=== PATIENT | female | born 1980 | race Caucasian/White ===

== ENCOUNTER 2017-04-01 02:47 | Emergency (ER) | payer MEDICAID ==
[~2017-04-01] VITALS: Ht 165.1 cm; Wt 48.1 kg
[~2017-04-01 02:47] MED LIST: HYDR-4037 PO; NOR10 PO; PRED20TA PO; PRO40 PO; SEVE800T10 PO
[2017-04-01 02:55] VITALS: BP_SYST 207
--- NOTE | 2017-04-01 03:16 | NUR ---
Patient to ER bed 5 to gown for evaluation. Side rails up. Report given to MAG SMITH.
--- NOTE | 2017-04-01 03:19 | NUR ---
Pt presents to ED with c/o burning R arm pain 10/10 with tingling, R chest portocath. Pt stated she had dialysis on 03/31. A&Ox4, skin intact. Will continue to monitor
--- NOTE | 2017-04-01 03:50 | NUR ---
MD elizalde at bedside examining pt
--- NOTE | 2017-04-01 04:00 | NUR ---
MD elizalde notified regarding BP 190/125, HR 125. stated to give morphine IV and ativan IV
[2017-04-01 04:04] LABS: CALCIUM 8.5 mg/dL (8.4-11.0); CREATININE 5.6 mg/dL (0.55-1.30); POTASSIUM 4.8 mmol/L (3.5-5.1)
[2017-04-01 04:09] LABS: ALBUMIN 3.7 g/dL (3.4-4.8); TOTAL BILIRUBIN 0.6 mg/dL (0.0-1.0); TOTAL PROTEIN, SERUM 8.1 g/dL (6.4-8.3)
[2017-04-01] MEDS ORDERED: MORPHINE 4 MG/ML INJ. SYRINGE IVP ONE (04:15)
[2017-04-01] MEDS ORDERED: LORazepam 2 MG/ML VIAL IVP ONE (04:15)
[2017-04-01] MEDS ORDERED: LORazepam 2 MG/ML VIAL (FOR ER USE) ONE (04:19)
[2017-04-01 04:20] LABS: BASOPHILS % (AUTO) 0.3 % (0.0-2.0); HEMATOCRIT 30.3 % (36-48); HEMOGLOBIN 9.6 g/dL (12.0-16.0); LYMPHOCYTES # (AUTO) 0.5 K/uL (1.0-5.5); LYMPHOCYTES % (AUTO) 15.5 % (20.5-51.5); MEAN CORPUSCULAR HEMOGLOBIN 30 pg (27-31); MEAN CORPUSCULAR HGB CONC 32 % (32-36); MEAN CORPUSCULAR VOLUME 95 fL (79.0-98.0); MONOCYTES # (AUTO) 0.3 K/uL (0.0-1.0); MONOCYTES % (AUTO) 8.3 % (1.7-9.3); NEUTROPHILS # (AUTO) 2.6 K/uL (1.8-7.7); NEUTROPHILS % (AUTO) 75.9 % (40.0-70.0); PLATELET COUNT (AUTO) 206 K/uL (130-430); RED BLOOD CELL COUNT(AUTO) 3.18 MIL/uL (4.2-6.2); WHITE BLOOD COUNT (AUTO) 3.4 K/uL (4.8-10.8)
[2017-04-01 04:31] LABS: PROTHROMBIN TIME 10.5 SECS (9.5-12.5)
--- NOTE | 2017-04-01 05:11 | NUR ---
Pt in bed, pain is tolerable. Will continue to monitor
--- NOTE | 2017-04-01 05:45 | NUR ---
MD elizalde stated that Pt is ok to be discharged with BP 185/112, HR 78.
[2017-04-01 06:15] VITALS: BP_SYST 171
--- NOTE | 2017-04-01 06:15 | NUR ---
Patient given written and verbal discharge instructions and verbalizes understanding. ER MD Olmedo discussed with patient the results and treatment provided. Patient in stable condition. ID arm band removed. IV catheter removed intact and dressing applied, no active bleeding. Rx of tramadol given. Patient educated on pain management and to follow up with PMD. Pain Scale 0/10. Opportunity for questions provided and answered.
== END 2017-04-01 06:15 | disposition home or self-care (01) ==
LOC: SED 02:47
DX: G89.29 Other chronic pain (principal); M79.602 Pain in left arm; I12.0 Hypertensive chronic kidney disease with stage 5 chronic kidney disease or end stage renal disease; N18.6 End stage renal disease; Z99.2 Dependence on renal dialysis; Z88.1 Allergy status to other antibiotic agents; Z88.5 Allergy status to narcotic agent; Z88.6 Allergy status to analgesic agent
CPT/HCPCS: 36415; 71010; 80053; 84484; 84703; 85025; 85610; 85730; 93005; 96374; 96375; 99285; J2060; J2270; J7030

== ENCOUNTER 2017-08-09 02:54 | Inpatient (IN) | payer MEDICAID ==
[2017-08-09] VITALS (7 sets, daily range): BP systolic 111–194
[~2017-08-09] VITALS: Ht 162.6 cm; Wt 54.0 kg
[2017-08-09] MEDS ORDERED: methylPREDNISolone SOD SUCC/PF 62.5 MG/ML VIAL IVP ONE (03:45)
[2017-08-09] MEDS ORDERED: KETOROLAC TROMETHAMINE 30 MG VIAL IVP ONE (03:45)
[2017-08-09] MEDS ORDERED: NS 500 ML IV ONE (03:45)
[2017-08-09] MEDS ORDERED: ONDANSETRON HCL 4 MG/2 ML VIAL IVP ONE (03:45)
[2017-08-09 04:17] LABS: HEMATOCRIT 40.9 % (36-48); HEMOGLOBIN 12.7 g/dL (12.0-16.0); MEAN CORPUSCULAR HEMOGLOBIN 29 pg (27-31); MEAN CORPUSCULAR HGB CONC 31 % (32-36); MEAN CORPUSCULAR VOLUME 92 fL (79.0-98.0); PLATELET COUNT (AUTO) 187 K/uL (130-430); RED BLOOD CELL COUNT(AUTO) 4.45 MIL/uL (4.2-6.2); RED CELL DISTRIBUTION WIDTH 20.3 % (9.0-15.0); WHITE BLOOD COUNT (AUTO) 7.5 K/uL (4.8-10.8)
[2017-08-09 04:18] LABS: BASOPHILS % (AUTO) 0.3 % (0.0-2.0); EOSINOPHILS % (AUTO) 0.1 % (0.0-4.0); LYMPHOCYTES # (AUTO) 0.5 K/uL (1.0-5.5); LYMPHOCYTES % (AUTO) 6.6 % (20.5-51.5); MONOCYTES # (AUTO) 0.2 K/uL (0.0-1.0); NEUTROPHILS # (AUTO) 6.8 K/uL (1.8-7.7)
[2017-08-09 04:27] LABS: CALCIUM 8.8 mg/dL (8.4-11.0)
[2017-08-09 04:31] LABS: ALBUMIN 3.1 g/dL (3.4-4.8); TOTAL BILIRUBIN 0.6 mg/dL (0.0-1.0)
[2017-08-09 04:34] LABS: POTASSIUM 7.8 mmol/L (3.5-5.1)
[2017-08-09 04:35] LABS: CREATININE 7.96 mg/dL (0.55-1.30)
[2017-08-09] MEDS ORDERED: DEXTROSE 50% JECT 50 ML DISP.SYRIN IVP ONE (04:45)
[2017-08-09] MEDS ORDERED: ALBUTEROL SULFATE 0.083% 2.5 MG/3 ML VIAL.NEB INH ONE ×2 (04:45→05:00)
[2017-08-09] MEDS ORDERED: INSULIN REGULAR, HUMAN 10 UNITS/0.1 ML INJ IVP ONE (04:45)
[2017-08-09] MEDS ORDERED: CALCIUM CHLORIDE 1 GM in NS 100 ML IV ONE (04:45)
[2017-08-09] MEDS ORDERED: SODIUM POLYSTYRENE SULFONATE 15 GM/60 ML UDBTL PO ONE (07:15)
[2017-08-09 08:17] LABS: CALCIUM 8.9 mg/dL (8.4-11.0)
[2017-08-09 08:22] LABS: CREATININE 7.7 mg/dL (0.55-1.30)
[2017-08-09] MEDS ORDERED: HEPARIN SODIUM, PORCINE 10,000 UNITS/ 10 ML VIAL MC ONE (10:00)
[2017-08-09] MEDS ORDERED: MORPHINE 4 MG/ML INJ. SYRINGE IVP PRN (10:30)
[2017-08-09] MEDS ORDERED: ACETAMINOPHEN 325 MG TABLET PO PRN (10:30)
[2017-08-09] MEDS ORDERED: MORPHINE 2 MG/ML INJ. SYRINGE IVP PRN (10:30)
[2017-08-09] MEDS ORDERED: cloNIDine HCL 0.1 MG TABLET PO PRN (10:30)
[2017-08-09] MEDS ORDERED: amLODIPine BESYLATE 10 MG TABLET PO ONE (10:45)
[2017-08-09 16:22] LABS: CALCIUM 8.7 mg/dL (8.4-11.0); CREATININE 4.41 mg/dL (0.55-1.30); POTASSIUM 4.5 mmol/L (3.5-5.1)
[2017-08-09] MEDS: SILVER 44.4 ML GEL.ER.ML. TP SCH (18:21)
[2017-08-09] MEDS: hydrALAZINE HCL 10 MG TABLET PO SCH (20:47)
[2017-08-10 03:39] VITALS: BP_SYST 130
[2017-08-10 06:06] LABS: HEPATITIS B SURFACE AG Negative (Negative); HEPATITIS C VIRUS AB <0.1 s/co ratio (0.0-0.9)
[2017-08-10] MEDS: PREDNISONE 20 MG TABLET PO SCH (09:37)
[2017-08-10] MEDS: amLODIPine BESYLATE 10 MG TABLET PO SCH (09:37)
[2017-08-10] MEDS: PANTOPRAZOLE SODIUM 40 MG TAB PO SCH (09:37)
[2017-08-10] MEDS: hydrALAZINE HCL 10 MG TABLET PO SCH ×2 (09:38→20:47)
[2017-08-10] MEDS: SILVER 44.4 ML GEL.ER.ML. TP SCH (09:40)
[2017-08-10 09:41] VITALS: BP_SYST 124
[2017-08-10 12:00] VITALS: BP_SYST 120
[2017-08-10 17:16] VITALS: BP_SYST 137
[2017-08-10 20:00] VITALS: BP_SYST 120
[2017-08-10 23:48] VITALS: BP_SYST 119
[2017-08-11 04:09] VITALS: BP_SYST 121
[2017-08-11 07:46] VITALS: BP_SYST 143
[2017-08-11 08:31] LABS: ALBUMIN 2.8 g/dL (3.4-4.8); BILIRUBIN,DIRECT 0.1 mg/dL (0.0-0.3); TOTAL BILIRUBIN 0.4 mg/dL (0.0-1.0)
[2017-08-11] MEDS: hydrALAZINE HCL 10 MG TABLET PO SCH (09:00)
[2017-08-11] MEDS: SILVER 44.4 ML GEL.ER.ML. TP SCH (09:00)
[2017-08-11] MEDS: amLODIPine BESYLATE 10 MG TABLET PO SCH (09:00)
[2017-08-11] MEDS: PREDNISONE 20 MG TABLET PO SCH (09:58)
[2017-08-11] MEDS: PANTOPRAZOLE SODIUM 40 MG TAB PO SCH (09:58)
[2017-08-11 11:34] VITALS: BP_SYST 135
[2017-08-11 12:17] VITALS: BP_SYST 135
== END 2017-08-11 12:41 | disposition home or self-care (01) | DRG 470 ==
LOC: SED 02:54 → STU 07:19 → SMU 08-10 11:22
PROVIDERS: ADMIT Internal Medicine Hospice and Palliative Medicine; ATTEND Internal Medicine Hospice and Palliative Medicine
PROC: 5A1D00Z (ICD-10-PCS; principal; 2017-08-09)
DX: I12.0 Hypertensive chronic kidney disease with stage 5 chronic kidney disease or end stage renal disease (principal); N18.6 End stage renal disease; M32.9 Systemic lupus erythematosus, unspecified; E87.5 Hyperkalemia; N04.9 Nephrotic syndrome with unspecified morphologic changes; E03.9 Hypothyroidism, unspecified; D63.1 Anemia in chronic kidney disease; R10.9 Unspecified abdominal pain; Z79.899 Other long term (current) drug therapy; Z99.2 Dependence on renal dialysis; Z88.6 Allergy status to analgesic agent; Z88.1 Allergy status to other antibiotic agents
CPT/HCPCS: 36415; 76700-TC; 80048; 80053; 80076; 82977-TC; 83605; 83690-TC; 84703; 85025; 86706; 86803; 87040-TC; 87081; 87340; 90935; 93005; 94640; 96365; 96375; 99285; A6261; J1815; J1885; J1956; J2405; J2930; J7030; J7512

== ENCOUNTER 2017-08-19 02:07 | Emergency (ER) | payer MEDICAID ==
[~2017-08-19] VITALS: Ht 162.6 cm; Wt 45.8 kg
[2017-08-19 02:22] VITALS: BP_SYST 131
[2017-08-19] MEDS ORDERED: ASPIRIN 81 MG TAB.CHEW PO ONE (02:45)
[2017-08-19] MEDS ORDERED: KETOROLAC TROMETHAMINE 60 MG/2 ML VIAL IM ONE (03:15)
[2017-08-19 03:23] LABS: CALCIUM 8.9 mg/dL (8.4-11.0); CREATININE 5.21 mg/dL (0.55-1.30); HEMATOCRIT 39.3 % (36-48); HEMOGLOBIN 12.6 g/dL (12.0-16.0); MEAN CORPUSCULAR HEMOGLOBIN 30 pg (27-31); MEAN CORPUSCULAR HGB CONC 32 % (32-36); MEAN CORPUSCULAR VOLUME 92 fL (79.0-98.0); PLATELET COUNT (AUTO) 193 K/uL (130-430); POTASSIUM 4.4 mmol/L (3.5-5.1); RED BLOOD CELL COUNT(AUTO) 4.26 MIL/uL (4.2-6.2); RED CELL DISTRIBUTION WIDTH 19.5 % (9.0-15.0)
[2017-08-19 03:24] LABS: BASOPHILS % (AUTO) 0.2 % (0.0-2.0); EOSINOPHILS % (AUTO) 0.2 % (0.0-4.0); LYMPHOCYTES # (AUTO) 0.8 K/uL (1.0-5.5); LYMPHOCYTES % (AUTO) 8.8 % (20.5-51.5); MONOCYTES # (AUTO) 0.5 K/uL (0.0-1.0); MONOCYTES % (AUTO) 5.1 % (1.7-9.3); NEUTROPHILS # (AUTO) 7.7 K/uL (1.8-7.7); NEUTROPHILS % (AUTO) 85.7 % (40.0-70.0)
[2017-08-19 03:28] LABS: ALBUMIN 3.3 g/dL (3.4-4.8); TOTAL BILIRUBIN 0.4 mg/dL (0.0-1.0)
[2017-08-19] MEDS ORDERED: MORPHINE 4 MG/ML INJ. SYRINGE IVP ONE (03:30)
[2017-08-19 03:33] LABS: PROTHROMBIN TIME 10.3 SECS (9.5-12.5)
[2017-08-19] MEDS ORDERED: METO25TA6 PO (03:36)
[2017-08-19 03:59] VITALS: BP_SYST 150
[2017-08-20] MEDS ORDERED: PRED10TA PO (18:12)
[2017-08-20] MEDS ORDERED: NOR10 PO (18:12)
== END 2017-08-19 03:59 | disposition home or self-care (01) ==
LOC: SED 02:07
DX: R51 Headache (principal); M79.1 Myalgia; R07.89 Other chest pain; R11.2 Nausea with vomiting, unspecified; I10 Essential (primary) hypertension; L93.0 Discoid lupus erythematosus; Z99.2 Dependence on renal dialysis; Z88.1 Allergy status to other antibiotic agents; Z88.5 Allergy status to narcotic agent
CPT/HCPCS: 36415; 71010; 80053; 83880; 84484; 85025; 85610; 85730; 93005; 96372; 96374; 99285; J1885; J2270

== ENCOUNTER 2017-08-20 14:55 | Inpatient (IN) | payer MEDICAID ==
[2017-08-20] VITALS (7 sets, daily range): BP systolic 94–116
[~2017-08-20] VITALS: Ht 162.6 cm; Wt 49.0 kg
[~2017-08-20 14:55] MED LIST changes: +METO25TA6 PO; -PRO40 PO
--- NOTE | 2017-08-20 15:03 | NUR ---
Pt GEM LARSON from home and place to ER bed 07, report given to MAG Gandhi.
--- NOTE | 2017-08-20 15:10 | NUR ---
Dr. Casas at bedside.
[2017-08-20] MEDS ORDERED: NACL 0.9% 1,000 ML IV ONE (15:15)
[2017-08-20] MEDS ORDERED: PANTOPRAZOLE SODIUM 40 MG/VIAL (PROTONIX) IVP ONE (15:15)
--- NOTE | 2017-08-20 15:25 | NUR ---
PT WAS IN THE BATHROOM AND IMMEDIATELY TAKEN BACK TO ROOM 7 AFTER HER MOTHER YELLED FOR HELP. PT WAS LIFTED BY E.R. TEAM. SHE WAS DIAPHORETIC AND WEAK. HER MOTHER STATED THAT SHE WAS TALKING TO HER WHILE IN THE BATHROOM THEN PT RESPONDED BACK "I JUST HAD A BOWEL MOVEMENT". MOTHER SAID THAT AFTER HEARING HER ANSWER HER DAUGHTER PASSED OUT. ONE OF THE STAFF YELLED THAT PT HAD A BRIEF SEIZURE. DR KRISHNA FOLLOWED PT INTO THE ROOM. SHE HAD PROJECTILE VOMITING, BURGUNDY COLOR. ATTEMPTED TO INSERT SALEM SUMP THREE TIMES, USED LEFT NARIS, 16 FR SIZE, AND CONNECTED TO SUCTION.
--- NOTE | 2017-08-20 15:50 | NUR ---
Lab at bedside, blood drawn.
--- NOTE | 2017-08-20 16:00 | NUR ---
#14 Fr. NGT placed to Left nare. Placement verified by aspirations of stomach contents, coffee ground emesis to collection container.
[2017-08-20] MEDS ORDERED: LORazepam 2 MG/ML VIAL (FOR ER USE) ONE (16:03)
[2017-08-20] MEDS ORDERED: PHENYTOIN SODIUM INJ 500 MG in NS 100 ML IV ONE ×2 (16:15→17:15)
[2017-08-20] MEDS ORDERED: LORazepam 2 MG/ML VIAL (FOR ER USE) IM ONE (16:15)
--- NOTE | 2017-08-20 16:15 | NUR ---
ANOTHER IV ACCESS INSERTED BY CHARGE NURSE TO RIGHT SHOULDER/ARM, 22 GAUGE CATHETER USED.
[2017-08-20 16:20] LABS: HEMATOCRIT 30.1 % (36-48); HEMOGLOBIN 9.5 g/dL (12.0-16.0); LYMPHOCYTES # (AUTO) 1.5 K/uL (1.0-5.5); LYMPHOCYTES % (AUTO) 8.7 % (20.5-51.5); MEAN CORPUSCULAR HEMOGLOBIN 29 pg (27-31); MEAN CORPUSCULAR HGB CONC 31 % (32-36); MONOCYTES # (AUTO) 0.3 K/uL (0.0-1.0); MONOCYTES % (AUTO) 1.8 % (1.7-9.3); NEUTROPHILS # (AUTO) 15.1 K/uL (1.8-7.7); NEUTROPHILS % (AUTO) 89.5 % (40.0-70.0); PLATELET COUNT (AUTO) 164 K/uL (130-430); RED BLOOD CELL COUNT(AUTO) 3.22 MIL/uL (4.2-6.2); RED CELL DISTRIBUTION WIDTH 19.8 % (9.0-15.0)
[2017-08-20 16:22] LABS: MEAN CORPUSCULAR VOLUME 94 fL (79.0-98.0); WHITE BLOOD COUNT (AUTO) 16.9 K/uL (4.8-10.8)
[2017-08-20 16:29] LABS: CALCIUM 8.9 mg/dL (8.4-11.0); CREATININE 3.1 mg/dL (0.55-1.30); POTASSIUM 5.6 mmol/L (3.5-5.1)
[2017-08-20 16:31] LABS: INR 1.2 (0.8-1.2); PROTHROMBIN TIME 11.7 SECS (9.5-12.5)
[2017-08-20 16:34] LABS: ALBUMIN 2.7 g/dL (3.4-4.8); TOTAL BILIRUBIN 0.5 mg/dL (0.0-1.0)
[2017-08-20] MEDS ORDERED: PHENYTOIN SODIUM 250 MG/5 ML INJ. VIAL IV ONE (16:48)
--- NOTE | 2017-08-20 17:42 | NUR ---
PT TO BE ADMITTED UNDER THE SERVICE OF DR TEJADA, PT AND FAMILY MADE AWARE.
[2017-08-20] MEDS ORDERED: LORazepam 2 MG/ML VIAL IVP PRN (17:45)
[2017-08-20] MEDS ORDERED: OCTREOTIDE ACETATE 500 MCG in NS 247.5 ML IV ONE (17:45)
[2017-08-20] MEDS ORDERED: SODIUM BICARBONATE 8.4% JECT 50 MEQ/50 ML SYRINGE IVP ONE (17:45)
[2017-08-20] MEDS ORDERED: SODIUM POLYSTYRENE SULFONATE 15 GM/60 ML UDBTL RC ONE (17:45)
[2017-08-20] MEDS ORDERED: ACETAMINOPHEN 325 MG TABLET PO SCH (17:45)
[2017-08-20] MEDS ORDERED: ONDANSETRON HCL 4 MG/2 ML VIAL IVP PRN (17:45)
[2017-08-20] MEDS ORDERED: NOR10 PO (18:12)
[2017-08-20] MEDS ORDERED: PRED10TA PO (18:12)
--- NOTE | 2017-08-20 18:25 | NUR ---
ER ADMIT ADULT FEMALE ADMITTED FROM ER.
--- NOTE | 2017-08-20 18:25 | NUR ---
TRANSFERRED CARE TO MAG MARTINEZ. TRANSPORTED VIA PORTABLE CARDIAC MONITORING INTO ICU BED 8.
--- NOTE | 2017-08-20 18:45 | NUR ---
ASSESSMENT PT ADMITTED FROM ER, IS AAA, FIRST LANGUAGE IS GREEK, SPEAKS VIETNAMESE ALSO. CAME TO ER WITH ABDOMINAL PAIN, DENIES PAIN AT THIS TIME. RECEIVED HEMODIALYSIS TODAY. STATES WHILE IN ER USING THE BATHROOM HAD EMESIS AND BECAME VERY DIZZY. DENIES HISTORY OF SEIZURE. SEIZURE PADS IN PLACE ON BED. ABLE TO MOVE ALL EXTREMITIES. NGT TO LIS DRAINING COFFEE GROUND LIQUID. ORIENTED TO ROOM, NURSE CALL-LIGHT, INSTRUCTED TO CALL FOR ASSISTANCE. AT BEDSIDE.
--- NOTE | 2017-08-20 19:15 | NUR ---
REPORT REPORT GIVEN TO NIGHT NURSE.
--- NOTE | 2017-08-20 19:30 | NUR ---
TRANSFER OF CARE Received report from AM shift RN. Pt is alert oriented x4. Denies pain at this time and no fever noted. Seizure pads in place. NGT to low intermittent suction draining coffee ground emesis. Pt is anuric. Call light within reach, Safety precaution identified. Oriented to room. at bedside. Will continue to monitor Pt.
[2017-08-20] MEDS ORDERED: OCTREOTIDE ACETATE 200 MCG/1 ML 5ML VIAL ONE (19:47)
[2017-08-20] MEDS: PANTOPRAZOLE SODIUM 40 MG in NS 50 ML IV SCH ×2 (19:48→23:53)
[2017-08-20] MEDS ORDERED: PANTOPRAZOLE SODIUM 40 MG/VIAL (PROTONIX) ONE ×2 (19:53→23:59)
[2017-08-20] MEDS: D5NS 1,000 ML IV SCH (21:09)
[2017-08-20 23:13] LABS: HEMOGLOBIN 7.1 g/dL (12.0-16.0)
--- NOTE | 2017-08-20 23:20 | NUR ---
LAB Lab results received with Hgb 7.1 and hematocrit at 23. Will notify MD and lab for PRBC.
[2017-08-20] MEDS ORDERED: ACETAMINOPHEN 325 MG TABLET PO PRN (23:30)
--- NOTE | 2017-08-20 23:35 | NUR ---
ALLERGY Pt stated she doesnt have any allergic reaction to hydrocodone and tylenol. Will continue to monitor Pt for allergic reaction.
--- NOTE | 2017-08-20 23:40 | NUR ---
MD Called Dr. Harp regarding Pt's complaint of pain on her hips and Hgb/hemotocrit levels. Orders received and will carry out orders.
[2017-08-20] MEDS: MORPHINE 2 MG/ML INJ. SYRINGE IVP PRN (23:47)
--- NOTE | 2017-08-20 23:47 | NUR ---
MORPHINE Gave morphine for pain of 9/10. Will reassess after 30 min.
[2017-08-20] MEDS ORDERED: MORPHINE 2 MG/ML INJ. SYRINGE ONE (23:50)
[2017-08-21] VITALS (19 sets, daily range): BP systolic 110–166
--- NOTE | 2017-08-21 00:17 | NUR ---
PAIN REASSESSMENT Denies pain, medication effective. Will continue to monitor Pt.
--- NOTE | 2017-08-21 03:25 | NUR ---
CONSULTATION CALLED CONSULT CALLED FOR DR. LOPEZ S/W MAURICE.
--- NOTE | 2017-08-21 03:40 | NUR ---
CONSULTATION CALLED CONSULT CALLED FOR DR. WATSON, DR. MANZANARES WILL SEE PT., S/W MAURICE.
[2017-08-21] MEDS ORDERED: PANTOPRAZOLE SODIUM 40 MG/VIAL (PROTONIX) ONE ×2 (04:02→21:37)
[2017-08-21 04:05] LABS: BASOPHILS % (AUTO) 0.2 % (0.0-2.0); HEMATOCRIT 25.3 % (36-48); HEMOGLOBIN 8.3 g/dL (12.0-16.0); LYMPHOCYTES # (AUTO) 0.6 K/uL (1.0-5.5); LYMPHOCYTES % (AUTO) 12.8 % (20.5-51.5); MEAN CORPUSCULAR HEMOGLOBIN 29 pg (27-31); MEAN CORPUSCULAR HGB CONC 33 % (32-36); MEAN CORPUSCULAR VOLUME 90 fL (79.0-98.0); MONOCYTES # (AUTO) 0.4 K/uL (0.0-1.0); MONOCYTES % (AUTO) 8.8 % (1.7-9.3); NEUTROPHILS # (AUTO) 3.5 K/uL (1.8-7.7); NEUTROPHILS % (AUTO) 78.2 % (40.0-70.0); PLATELET COUNT (AUTO) 134 K/uL (130-430); RED BLOOD CELL COUNT(AUTO) 2.83 MIL/uL (4.2-6.2); RED CELL DISTRIBUTION WIDTH 19.1 % (9.0-15.0)
[2017-08-21 04:06] LABS: WHITE BLOOD COUNT (AUTO) 4.5 K/uL (4.8-10.8)
[2017-08-21 04:17] LABS: CALCIUM 8.7 mg/dL (8.4-11.0); CREATININE 4.09 mg/dL (0.55-1.30); POTASSIUM 5.3 mmol/L (3.5-5.1)
[2017-08-21 04:28] LABS: PROTHROMBIN TIME 10.6 SECS (9.5-12.5)
[2017-08-21] MEDS: PANTOPRAZOLE SODIUM 40 MG in NS 50 ML IV SCH ×5 (04:34→23:45)
--- NOTE | 2017-08-21 07:30 | NUR ---
ENDORSEMENT Gave report to LOPEZ gonzalez RN.
--- NOTE | 2017-08-21 07:35 | NUR ---
AM ROUNDS: RECEIVED REPORT FROM [facility] ICU NIGHT NURSE. PATIENT AWAKE DURING ROUNDS. WITH NG TUBE RIGHT NARES CONNECTED TO LOW INTERMITTENT SUCTION,MINIMAL COFFEE GROUND DISCHARGES NOTED IN THE CANISTER. IVF AND SANDOSTATIN DRIP AT RIGHT SHOULDER,DRY AND CLEAN. RIGHT AC PROTONIX DRIP AT 10CC/H ,DRESSING DRY AND CLEAN. ON O2 1L/NC,GOOD SATURATION.WITH BILATERAL SCD,S ON LE. NO ACTIVE BLEEDING NOTED.
--- NOTE | 2017-08-21 08:41 | NUR ---
GI ROUNDS: PATIENT SEEN BY DR LOPEZ WITH ORDERS DC NGT RIGHT KAMILLE.PATIENT MAY START ON CLEAR LIQUID DIET. NPO BREAKFAST IN AM.TO SECURE CONSENT FOR EGD TOMORROW ORDERED.FOR BLOOD TEST IN AM WELL.
--- NOTE | 2017-08-21 09:12 | NUR ---
Nutrition Update Guillaume Scale 18 noted. Pt admitted for upper GI bleed, seizure. Diet: clear liquid BMI: 20.2 kg/m2 RD to follow per nutrition care standards.
--- NOTE | 2017-08-21 09:25 | NUR ---
DC NGT: DC NG TUBE RIGHT NARES ORDERED BY DR LOPEZ.
--- NOTE | 2017-08-21 09:34 | NUR ---
RN ROUNDS: PATIENT AWAKE,ALERT AND ORIENTED X4. ON O2 1L/NC,GOOD SATURATION. DENIES ANY PAIN. NGT RIGHT NARES CONNECTED TO LOW INTERMITTENT SUCTION. RIGHT SHOULDER IVF AND SANDOSTATIN ON GOING. RIGHT SUBCLAVIAN PERMA CATHETER,DRESSING WITH MINIMAL OLD STAINED.RIGHT AC PROTONIX DRIP AT 10CC/H. NO NEEDS THIS TIME.
[2017-08-21 10:27] LABS: EOSINOPHILS % (AUTO) 0.1 % (0.0-4.0); HEMOGLOBIN 8.4 g/dL (12.0-16.0); LYMPHOCYTES # (AUTO) 0.4 K/uL (1.0-5.5); LYMPHOCYTES % (AUTO) 6.2 % (20.5-51.5); MONOCYTES # (AUTO) 0.3 K/uL (0.0-1.0); NEUTROPHILS # (AUTO) 5.7 K/uL (1.8-7.7); PLATELET COUNT (AUTO) 161 K/uL (130-430); WHITE BLOOD COUNT (AUTO) 6.4 K/uL (4.8-10.8)
[2017-08-21 10:30] LABS: BASOPHILS % (AUTO) 0.2 % (0.0-2.0); HEMATOCRIT 26.4 % (36-48); MEAN CORPUSCULAR HEMOGLOBIN 29 pg (27-31); MEAN CORPUSCULAR HGB CONC 32 % (32-36); MEAN CORPUSCULAR VOLUME 91 fL (79.0-98.0); MONOCYTES % (AUTO) 4.6 % (1.7-9.3); NEUTROPHILS % (AUTO) 88.9 % (40.0-70.0); RED BLOOD CELL COUNT(AUTO) 2.91 MIL/uL (4.2-6.2); RED CELL DISTRIBUTION WIDTH 20.5 % (9.0-15.0)
--- NOTE | 2017-08-21 10:30 | NUR ---
bedside commode: assisted patient to bedside commode slowly,just passed gas. no void,anuric.placed patient back to bed,scd,s on le.
[2017-08-21] MEDS: METOCLOPRAMIDE HCL 10 MG/2 ML VIAL IVP SCH ×2 (12:00→18:37)
--- NOTE | 2017-08-21 12:07 | NUR ---
meal: patient situated during lunch time,on clear liquid diet. mother at bedside. no distress.
[2017-08-21] MEDS: MORPHINE 2 MG/ML INJ. SYRINGE IVP PRN (12:27)
--- NOTE | 2017-08-21 12:30 | NUR ---
pain meds: c/o lower buttocks pain and due iv pain meds given per request.
--- NOTE | 2017-08-21 13:48 | NUR ---
MD ROUNDS: PATIENT SEEN BY DR Marta TEJADA AND WITH ORDERS TRANSFER TO TELEMETRY FLOOR.
--- NOTE | 2017-08-21 14:17 | NUR ---
iv drip: hang a new bag of iv protonix as ordered. at bedside,patient sleeping during rounds.
[2017-08-21] MEDS ORDERED: amLODIPine BESYLATE 10 MG TABLET PO ONE (15:15)
[2017-08-21] MEDS ORDERED: METOPROLOL TARTRATE 25 MG TABLET PO ONE (15:15)
--- NOTE | 2017-08-21 15:41 | NUR ---
bp: norvasc 20mg po and lopressor 25mg po given for mu=303/100 as ordered.
--- NOTE | 2017-08-21 16:28 | NUR ---
TRANSFER OUT: REPORT GIVEN TO [facility] RN.PATIENT TRANSPORTED TO [facility] ROOM 107A IN STABLE CONDITION.ASSISTED PATIENT TO THE TOILET,HAD LARGE AMOUNT OF BLACK LOOSE STOOL WITH CHUNKS OF BLOOD CLOTS.ENDORSED TO RECEIVING RN IN THE FLOOR,PATIENT NOT IN ANY DISTRESS.
--- NOTE | 2017-08-21 16:30 | NUR ---
Transfer note Pt received from MAG Deshpande ICU nurse. Pt assisted to restroom and returned to bed, ICU nurse report BM with dark coffee ground appearance, IV fluids and drip continued per order, assessment completed and vital signs monitored and entered. Pt has no s/s of SOB, no c/o pain but reports mild gastric discomfort. Pt has Rt AC 22 g IV, Rt shoulder 22 G IV and RT subclavian jt cath. All are patent and benign. Pt has dialysis scheduled at 8 am tomorrow 08/22/17 although she is normally on a , , Tue schedule. Her creatine level is 4.[address] Gallegos has scheduled an off schedule dialysis. In addition, pt has an EGD scheduled tomorrow at 1300 as well. Both consents are signed and in the chart. A copy of the dialysis order has been given to the dye house supervisor. Pt has new onset seizure diagnosis. Pt is on clear liquid but is NPO after midnight tonight. Safety precautions are in place and have been reviewed with patient. Family is at bedside. Bed left in lowest position, bed alarm is on and call light is within reach.
--- NOTE | 2017-08-21 18:00 | NUR ---
ROUNDING NOTE pT RESTING WITH FAMILY AT BEDSIDE, NO S/S OF SOB OR DISTRESS, NO COMPLAINTS OF PAIN, PT REPORTS FEELING "A LITTLE BETTER", NO ADDITIONAL VOMITING OR DIARRHEA. REVIEWED SAFETY PRECAUTIONS AND BED LEFT IN LOWEST POSITION WITH CALL LIGHT WITHIN REACH AND BED ALARM ON.
[2017-08-21 18:07] LABS: HEMATOCRIT 23.8 % (36-48)
[2017-08-21 18:08] LABS: HEMOGLOBIN 7.6 g/dL (12.0-16.0)
--- NOTE | 2017-08-21 18:46 | NUR ---
Closing note Pt reports no nausea, discomfort or pain at this time, no s/s of SOB. Pt has dialysis scheduled for tomorrow morning at 8 and an EGD after that in the afternoon. Pt to be NPO after midnight tonight. Family is at bedside and pt left sitting up in bed with IVF an protonix drip being administered. Reviewed safety precautions and left bed in lowest position, call light within reach and bed alarm on. Pt and family agree to call for any assistance. Addendum: 08/21/17 at 1954 by Susie Hernandez RN Endorsed seizure precautions to NOC shift nurseAmber RN
--- NOTE | 2017-08-21 20:05 | NUR ---
Beginning of shift assessment Pt lying in bed w eyes closed. Easily arousable to verbal/tactile stimulation. Pt able to make needs known, able to follow commands. Respirations even and unlabored. No distress noted. Pt on room air. IVF infusing, site patent, no s/s of infiltration or infection. R subclavian Douglas in place for dialysis. Dressing clean/dry/intact. Protonix drip empty, none available in med room, transfer and pumphouse operator chief notified. Will administer when medication arrives. Call light within reach, bed in low position for safety, will continue to monitor.
[2017-08-21] MEDS: hydrALAZINE HCL 10 MG TABLET PO SCH (21:19)
[2017-08-22] VITALS (7 sets, daily range): BP systolic 119–158
[2017-08-22] MEDS: METOCLOPRAMIDE HCL 10 MG/2 ML VIAL IVP SCH ×3 (00:05→14:49)
[2017-08-22] MEDS ORDERED: PANTOPRAZOLE SODIUM 40 MG/VIAL (PROTONIX) ONE (03:48)
[2017-08-22] MEDS: PANTOPRAZOLE SODIUM 40 MG in NS 50 ML IV SCH ×5 (04:06→23:32)
[2017-08-22] MEDS: MORPHINE 2 MG/ML INJ. SYRINGE IVP PRN ×3 (04:25→19:59)
--- NOTE | 2017-08-22 04:27 | NUR ---
Pain Pt c/o 06/23 back pain. Medicated w Morphine per MD order. Will continue to monitor
--- NOTE | 2017-08-22 06:45 | NUR ---
Headache Pt c/o 08/23 headache. Unable to give tylenol due to NPO. Dr Loyd govea. Will await call back.
[2017-08-22 07:17] LABS: BASOPHILS % (AUTO) 0.3 % (0.0-2.0); EOSINOPHILS % (AUTO) 0.4 % (0.0-4.0); HEMATOCRIT 25.1 % (36-48); HEMOGLOBIN 8.2 g/dL (12.0-16.0); LYMPHOCYTES # (AUTO) 0.7 K/uL (1.0-5.5); LYMPHOCYTES % (AUTO) 8.9 % (20.5-51.5); MEAN CORPUSCULAR HEMOGLOBIN 30 pg (27-31); MEAN CORPUSCULAR HGB CONC 33 % (32-36); MEAN CORPUSCULAR VOLUME 91 fL (79.0-98.0); MONOCYTES # (AUTO) 0.4 K/uL (0.0-1.0); NEUTROPHILS # (AUTO) 6.9 K/uL (1.8-7.7); NEUTROPHILS % (AUTO) 85.4 % (40.0-70.0); PLATELET COUNT (AUTO) 216 K/uL (130-430); RED BLOOD CELL COUNT(AUTO) 2.77 MIL/uL (4.2-6.2); RED CELL DISTRIBUTION WIDTH 19.5 % (9.0-15.0)
--- NOTE | 2017-08-22 07:20 | NUR ---
Initial notes: patient on bed awake, alert and oriented. Complaining of h/a. Stable. Seizure and fall precaution in placed. Call light within reach. Report received at bedside.
--- NOTE | 2017-08-22 07:25 | NUR ---
End of shift report Endorsed pt care and SBAR to Angeline HATHAWAY. RN aware of pt headache and awaiting MD call back.
[2017-08-22 07:44] LABS: PROTHROMBIN TIME 9.7 SECS (9.5-12.5)
--- NOTE | 2017-08-22 07:59 | NUR ---
Headache: Patient complained of h/a. Tylenol given with a few sip of water. Morphine not due and still waiting for the M.D. to call back.
--- NOTE | 2017-08-22 08:31 | NUR ---
Dialysis: Pt. started the dialysis.
[2017-08-22 09:02] LABS: CALCIUM 8.8 mg/dL (8.4-11.0); CREATININE 6.09 mg/dL (0.55-1.30); POTASSIUM 4.6 mmol/L (3.5-5.1)
[2017-08-22 09:14] LABS: ALBUMIN 2.9 g/dL (3.4-4.8); TOTAL BILIRUBIN 0.2 mg/dL (0.0-1.0)
--- NOTE | 2017-08-22 09:36 | NUR ---
rounds: patient sleeping. no distress noted. still on going dialysis.
[2017-08-22] MEDS ORDERED: HEPARIN SODIUM,PORCINE 5000 UNITS/ML VIAL MC ONE (10:00)
[2017-08-22 10:19] LABS: BILIRUBIN,DIRECT 0.1 mg/dL (0.0-0.3)
--- NOTE | 2017-08-22 11:30 | NUR ---
Dialysis: Dialysis done with output of 2300ml. BP WNL.
--- NOTE | 2017-08-22 11:37 | NUR ---
Dietitian Recommendations * Consider advance diet if/when medically appropriate (renal diet restrictions) LP, RD Please refer to Nutrition Assessment for details.
--- NOTE | 2017-08-22 12:46 | NUR ---
EDG: transfer to g.i. lab for the procedure.
[2017-08-22] MEDS: MEPERIDINE HCL/PF 100 MG/ML AMP ONE ×2 (13:44→13:47)
[2017-08-22] MEDS: MIDAZOLAM HCL 5 MG/5 ML VIAL ONE ×4 (13:44→13:51)
[2017-08-22] MEDS ORDERED: SUCRALFATE 1 GM/10 ML UDC GT SCH (14:15)
[2017-08-22] MEDS: amLODIPine BESYLATE 10 MG TABLET PO SCH (14:50)
[2017-08-22] MEDS: hydrALAZINE HCL 10 MG TABLET PO SCH ×2 (14:51→20:54)
[2017-08-22] MEDS: METOPROLOL TARTRATE 25 MG TABLET PO SCH (14:51)
--- NOTE | 2017-08-22 14:59 | NUR ---
patient back in her room
--- NOTE | 2017-08-22 15:00 | NUR ---
Medication: medication given late due to withheld due to dialysis and NPO for EDG.
[2017-08-22] MEDS: D5NS 1,000 ML IV SCH ×2 (17:43→20:53)
--- NOTE | 2017-08-22 17:47 | NUR ---
ROUNDS: Patient having dinner. no distress noted.
--- NOTE | 2017-08-22 18:59 | NUR ---
closing notes: patient on bed resting. Stable. Needs attended. Safety and seizure precaution in placed. Call light within reach. Report will be given to fast food shift supervisor.
--- NOTE | 2017-08-22 19:30 | NUR ---
notes received the pt from the day nurse,pt a/a/ox4.denies pain and discomfort when asked.seizure precausions in progress ,no seizure activity noted.iv intact to rt shoulder,no redness or swelling noted.port a cath. intact to rt upper chest.call light within reach,safety measures in progress. will continue to monitor.
--- NOTE | 2017-08-22 20:01 | NUR ---
Clarification of Blood transfusion: Informed Dr. Brownnig about the blood transfusion order this morning with hemoglobin 8.2. and patient no bleeding. Dr. Browning clarified with Dr. Loo and Dr. Loo said "no blood transfusion hemoglobin 8.2." Check the cbc for tomorrow morning.
--- NOTE | 2017-08-22 22:00 | NUR ---
REPORT: REPORT TAKEN FROM JACK COLEMAN FOR CONTINUITY OF CARE. PROTONIX DRIP RESTARTED AT 10ML/HR. ,IVF INFUSING AT 40ML/HR.SITE CLEAR.FEELS COMFORTABLE THIS TIME. ANURIC. PERMA CATH IN PLACE. DRESSING DRY AND INTACT.
[2017-08-23] VITALS: BP_SYST 147
[2017-08-23] MEDS: MORPHINE 2 MG/ML INJ. SYRINGE IVP PRN ×2 (00:29→08:17)
--- NOTE | 2017-08-23 00:29 | NUR ---
pain: complain of back/ buttocks pain due to previous fall in ER here LEVEL 7/10. MORPHINE 2MG IV GIVEN ,IV SITE CLEAR.
--- NOTE | 2017-08-23 03:40 | NUR ---
VITAL SIGNS TAKEN . BP ON MOD ELEVATED. PATIENT IS ESRD.
[2017-08-23] MEDS: PANTOPRAZOLE SODIUM 40 MG in NS 50 ML IV SCH ×2 (04:29→10:28)
[2017-08-23 04:38] VITALS: BP_SYST 149
--- NOTE | 2017-08-23 06:35 | NUR ---
CLOSING: ALL NEEDS WERE MET. NO BLEEDING NOTED.ANURIC. NO ACUTE DISTRESS. NO N/V. CALL LIGHT WITHIN REACH. BED IN LOW POSITION.
--- NOTE | 2017-08-23 07:57 | NUR ---
OPENING NOTE: PATIENT SITTING UP IN BED. AAOX4. NO ACUTE SIGNS OF RESP DISTRESS, NO SOB. SKIN WARM DRY AND COLOR NORMAL FOR ETHNICITY. IV INTACT AND PATENT, NO REDNESS/SWELLING/PAIN TO SITE. SEIZURE PADS IN PLACE. BED AT LOWEST POSITION, CALL LIGHT IN REACH, SIDE RAILX2, EDUCATED PATIENT TO CALL PRIOR TO GETTING UP AND PATIENT VERBALIZED UNDERSTANDING.
[2017-08-23 08:00] VITALS: BP_SYST 151
[2017-08-23] MEDS: amLODIPine BESYLATE 10 MG TABLET PO SCH (08:17)
[2017-08-23] MEDS: hydrALAZINE HCL 10 MG TABLET PO SCH (08:18)
[2017-08-23] MEDS: METOPROLOL TARTRATE 25 MG TABLET PO SCH (08:18)
[2017-08-23] MEDS ORDERED: SUCRALFATE 1 GM TABLET PO ONE (09:30)
--- NOTE | 2017-08-23 10:00 | NUR ---
ROUNDING: PATIENT RESTING IN BED, SEMI FOWLERS. AAOX4. AM MEDS GIVEN PER MD ORDERS AND PATIENT TOLERATED WELL. NO ACUTE SIGNS OF RESP DISTRESS, NO SOB. BREATHING EVEN AND UNLABORED. PATIENT ON ROOM AIR AND SATURATING AT 98%O2. IV INTACT AND PATENT, NO REDNESS/SWELLING/PAIN TO SITE. PATIENT DENIES DIZZINESS/LIGHTHEADED. BED AT LOWEST POSITION, CALL LIGHT IN REACH, SIDE RAILX2. Addendum: 08/23/17 at 1159 by Janine Garcia RN DR. STEVE IN UNIT AND HE AWARE THAT PATIENT HAD TO NEW ORDERS FOR LABS FOR THIS MORNING. AND HE IS AWARE OF PATIENTS CURRENT HGB IS 8.2. PER DR. STEVE STATED "YEAH THATS OKAY". NO NEW ORDERS NOTED.
[2017-08-23 10:05] VITALS: BP_SYST 142
[2017-08-23] MEDS ORDERED: FLU VACC QS 2017-18(36MOS+)/PF 0.5 ML/SYR SYRINGE I.M. PRN (11:30)
--- NOTE | 2017-08-23 11:55 | NUR ---
D/C Patient Patient given medication reconciliation form and D/C instructions. Exit Care provided. Patient verbalized understanding. MD discussed with patient the results and treatment provided. Ambulatory with steady gait for discharge to home. Patient in stable condition, ID band removed. IV catheter removed, intact and dressing applied, no active bleeding. Rx of given. Patient educated on pain management. All belongings sent with patient.
[2017-08-23] MEDS ORDERED: SUCRALFATE 1 GM TABLET PO SCH (17:00)
== END 2017-08-23 11:55 | disposition home or self-care (01) | DRG 241 ==
LOC: SED 14:55 → SIC 17:42 → SMU 08-21 16:20 → STU 08-21 18:26 → SMU 08-22 22:04
PROVIDERS: ADMIT Internal Medicine; ATTEND Internal Medicine
PROC: 30233N1 Transfusion of Nonautologous Red Blood Cells into Peripheral Vein, Percutaneous Approach (ICD-10-PCS; 2017-08-20)
PROC: 0DB98ZX Excision of Duodenum, Via Natural or Artificial Opening Endoscopic, Diagnostic (ICD-10-PCS; 2017-08-22)
PROC: 0DB68ZX Excision of Stomach, Via Natural or Artificial Opening Endoscopic, Diagnostic (ICD-10-PCS; principal; 2017-08-22 13:30)
DX: K25.4 Chronic or unspecified gastric ulcer with hemorrhage (principal); N18.6 End stage renal disease; I12.0 Hypertensive chronic kidney disease with stage 5 chronic kidney disease or end stage renal disease; M32.9 Systemic lupus erythematosus, unspecified; N04.9 Nephrotic syndrome with unspecified morphologic changes; K92.2 Gastrointestinal hemorrhage, unspecified; D63.1 Anemia in chronic kidney disease; K29.80 Duodenitis without bleeding; T39.395A Adverse effect of other nonsteroidal anti-inflammatory drugs [NSAID], initial encounter; Z96.651 Presence of right artificial knee joint; Z88.1 Allergy status to other antibiotic agents; Z88.6 Allergy status to analgesic agent; Z79.52 Long term (current) use of systemic steroids; Z99.2 Dependence on renal dialysis; Y92.89 Other specified places as the place of occurrence of the external cause
CPT/HCPCS: 36415; 43239; 80048; 80053; 80076; 83605; 83690-TC; 84484; 85018-TC; 85025; 85610-TC; 85730-TC; 86886; 86900; 86901; 86920; 87040-TC; 87081; 88305; 88312; 88313; 90935; 93005; 96365; 96372; 96375; 99285; C9113; J1165; J1644; J2060; J2175; J2250; J2270; J2354; J2765; J7030; J7040; J7042; J7050; P9021; Q2037

== ENCOUNTER 2018-05-14 21:56 | Inpatient (IN) | payer OTHER, MEDICAID ==
[~2018-05-14] VITALS: Ht 162.6 cm; Wt 49.0 kg
[~2018-05-14 21:56] MED LIST changes: +FLA250 PO; +LEVE500T13 PO; +PRO40 PO; -SEVE800T10 PO
[2018-05-14 22:00] VITALS: BP_SYST 185
[2018-05-14] MEDS ORDERED: MORPHINE 4 MG/ML INJ. SYRINGE IVP ONE ×2 (22:15→23:30)
[2018-05-14 22:55] LABS: BASOPHILS # (AUTO) 0.1 K/uL (0.0-0.2); BASOPHILS % (AUTO) 1.4 % (0.0-2.0); EOSINOPHILS % (AUTO) 0.1 % (0.0-4.0); HEMATOCRIT 36.5 % (36-48); HEMOGLOBIN 11.8 g/dL (12.0-16.0); LYMPHOCYTES # (AUTO) 1.1 K/uL (1.0-5.5); LYMPHOCYTES % (AUTO) 21.8 % (20.5-51.5); MEAN CORPUSCULAR HEMOGLOBIN 32 pg (27-31); MEAN CORPUSCULAR HGB CONC 32 % (32-36); MEAN CORPUSCULAR VOLUME 98 fL (79.0-98.0); MONOCYTES # (AUTO) 0.7 K/uL (0.0-1.0); MONOCYTES % (AUTO) 14.5 % (1.7-9.3); NEUTROPHILS # (AUTO) 3.1 K/uL (1.8-7.7); NEUTROPHILS % (AUTO) 62.2 % (40.0-70.0); PLATELET COUNT (AUTO) 104 K/uL (130-430); RED BLOOD CELL COUNT(AUTO) 3.75 MIL/uL (4.2-6.2)
[2018-05-14 23:12] LABS: CALCIUM 8.3 mg/dL (8.4-11.0); CREATININE 7.4 mg/dL (0.55-1.30); POTASSIUM 4.4 mmol/L (3.5-5.1)
[2018-05-14 23:17] LABS: ALBUMIN 3.5 g/dL (3.4-4.8); TOTAL BILIRUBIN 0.5 mg/dL (0.0-1.0)
[2018-05-15] MEDS: NORMAL SALINE 5 ML DISP.SYRIN IVF SCH ×3 (00:10→22:04)
[2018-05-15] MEDS ORDERED: ENOXAPARIN SODIUM 60 MG/0.6 ML SYRINGE SUBCUT ONE (00:15)
[2018-05-15 01:05] VITALS: BP_SYST 159
[2018-05-15] MEDS: MORPHINE 4 MG/ML INJ. SYRINGE IVP PRN (02:27)
[2018-05-15] MEDS ORDERED: LORazepam 2 MG/ML VIAL IVP PRN (03:00)
[2018-05-15 05:20] VITALS: BP_SYST 141
[2018-05-15] MEDS ORDERED: ONDANSETRON HCL 4 MG/2 ML VIAL IVP PRN (08:30)
[2018-05-15] MEDS ORDERED: ONDANSETRON HCL 4 MG/2 ML VIAL IVP ONE (08:30)
[2018-05-15] MEDS ORDERED: hydrALAZINE HCL 10 MG TABLET PO SCH (09:00)
[2018-05-15 09:08] VITALS: BP_SYST 152
[2018-05-15] MEDS ORDERED: HEPARIN 25,000 UNITS/D5W 250ML 250 ML IV PRN (09:45)
[2018-05-15 11:15] VITALS: BP_SYST 157
[2018-05-15] MEDS: PANTOPRAZOLE SODIUM 40 MG TAB PO SCH (12:30)
[2018-05-15] MEDS: PREDNISONE 20 MG TABLET PO SCH (12:30)
[2018-05-15] MEDS ORDERED: *HEPARIN PER PHARMACY XX ONE (12:30)
[2018-05-15] MEDS: levETIRAcetam 500 MG TABLET PO SCH (12:31)
[2018-05-15] MEDS: METOPROLOL TARTRATE 25 MG TABLET PO SCH (12:31)
[2018-05-15] MEDS: amLODIPine BESYLATE 10 MG TABLET PO SCH (12:33)
[2018-05-15] MEDS ORDERED: HEPARIN SODIUM,PORCINE 5000 UNITS/ML VIAL ONE (15:10)
[2018-05-15] MEDS ORDERED: HEPARIN 25,000 UNITS/D5W 250ML 250 ML IV SCH (15:15)
[2018-05-15] MEDS: HEPARIN 25,000 UNITS/D5W 250ML 250 ML IV PRN (15:26)
[2018-05-15] MEDS ORDERED: HEPARIN SODIUM,PORCINE 5000 UNITS/ML VIAL IVP ONE (15:30)
[2018-05-15 16:00] VITALS: BP_SYST 166
[2018-05-15] MEDS ORDERED: cloNIDine HCL 0.2 MG TABLET PO PRN (16:15)
[2018-05-15] MEDS ORDERED: hydrALAZINE HCL 25 MG TABLET PO ONE (16:30)
[2018-05-15 19:50] VITALS: BP_SYST 152
[2018-05-15] MEDS: hydrALAZINE HCL 25 MG TABLET PO SCH (22:03)
[2018-05-16] VITALS: BP_SYST 150
[2018-05-16] MEDS: NORMAL SALINE 5 ML DISP.SYRIN IVF SCH ×3 (06:47→22:00)
[2018-05-16] MEDS: hydrALAZINE HCL 25 MG TABLET PO SCH ×3 (06:49→21:54)
[2018-05-16 08:00] VITALS: BP_SYST 148
[2018-05-16] MEDS: amLODIPine BESYLATE 10 MG TABLET PO SCH (09:00)
[2018-05-16] MEDS ORDERED: HEPARIN SODIUM,PORCINE 5000 UNITS/ML VIAL MC ONE (10:30)
[2018-05-16 11:26] VITALS: BP_SYST 148
[2018-05-16] MEDS: PREDNISONE 20 MG TABLET PO SCH (15:05)
[2018-05-16] MEDS: METOPROLOL TARTRATE 25 MG TABLET PO SCH (15:05)
[2018-05-16] MEDS: PANTOPRAZOLE SODIUM 40 MG TAB PO SCH (15:06)
[2018-05-16] MEDS: levETIRAcetam 500 MG TABLET PO SCH (15:06)
[2018-05-16] MEDS ORDERED: OXYCODONE/ACETAMINOPHEN 5-325 TABLET PO PRN (15:15)
[2018-05-16 15:33] VITALS: BP_SYST 150
[2018-05-16] MEDS ORDERED: DIPHENHYDRAMINE HCL 50 MG CAPSULE ONE (15:41)
[2018-05-16] MEDS: OXYCODONE/ACETAMINOPHEN *10*mg/325 mg TABLET PO PRN (16:25)
[2018-05-16] MEDS: MORPHINE 4 MG/ML INJ. SYRINGE IVP PRN (17:33)
[2018-05-16] MEDS: HEPARIN 25,000 UNITS/D5W 250ML 250 ML IV PRN ×2 (17:49→22:08)
[2018-05-16 19:00] VITALS: BP_SYST 151
[2018-05-16 20:00] VITALS: BP_SYST 151
[2018-05-16] MEDS ORDERED: HEPARIN SODIUM,PORCINE 5000 UNITS/ML VIAL IV ONE (20:00)
[2018-05-17] VITALS (7 sets, daily range): BP systolic 148–177
[2018-05-17] MEDS: DIPHENHYDRAMINE HCL 50 MG CAPSULE PO PRN ×2 (00:24→23:47)
[2018-05-17] MEDS: ONDANSETRON HCL 4 MG/2 ML VIAL IVP PRN ×2 (05:23→17:38)
[2018-05-17] MEDS: hydrALAZINE HCL 25 MG TABLET PO SCH ×3 (05:26→20:48)
[2018-05-17] MEDS: MORPHINE 4 MG/ML INJ. SYRINGE IVP PRN ×2 (05:31→18:38)
[2018-05-17] MEDS: NORMAL SALINE 5 ML DISP.SYRIN IVF SCH ×3 (05:35→20:50)
[2018-05-17] MEDS: amLODIPine BESYLATE 10 MG TABLET PO SCH (08:27)
[2018-05-17] MEDS: PREDNISONE 20 MG TABLET PO SCH (08:27)
[2018-05-17] MEDS: levETIRAcetam 500 MG TABLET PO SCH (08:28)
[2018-05-17] MEDS: PANTOPRAZOLE SODIUM 40 MG TAB PO SCH (08:28)
[2018-05-17] MEDS: METOPROLOL TARTRATE 25 MG TABLET PO SCH (08:28)
[2018-05-17] MEDS: HEPARIN 25,000 UNITS/D5W 250ML 250 ML IV PRN (16:56)
[2018-05-17] MEDS ORDERED: WARFARIN SODIUM 5 MG TABLET PO SCH (18:00)
[2018-05-18 00:19] VITALS: BP_SYST 177
[2018-05-18 04:13] VITALS: BP_SYST 162
[2018-05-18] MEDS: ONDANSETRON HCL 4 MG/2 ML VIAL IVP PRN (06:14)
[2018-05-18] MEDS: MORPHINE 4 MG/ML INJ. SYRINGE IVP PRN (06:16)
[2018-05-18] MEDS: hydrALAZINE HCL 25 MG TABLET PO SCH ×3 (06:22→21:30)
[2018-05-18] MEDS: NORMAL SALINE 5 ML DISP.SYRIN IVF SCH ×3 (06:24→21:31)
[2018-05-18 07:15] LABS: BASOPHILS % (AUTO) 0.6 % (0.0-2.0); EOSINOPHILS % (AUTO) 0.1 % (0.0-4.0); HEMATOCRIT 39.2 % (36-48); HEMOGLOBIN 12.6 g/dL (12.0-16.0); LYMPHOCYTES # (AUTO) 0.9 K/uL (1.0-5.5); LYMPHOCYTES % (AUTO) 15.4 % (20.5-51.5); MEAN CORPUSCULAR HEMOGLOBIN 31 pg (27-31); MEAN CORPUSCULAR HGB CONC 32 % (32-36); MEAN CORPUSCULAR VOLUME 96 fL (79.0-98.0); MONOCYTES # (AUTO) 0.5 K/uL (0.0-1.0); MONOCYTES % (AUTO) 8.9 % (1.7-9.3); NEUTROPHILS # (AUTO) 4.4 K/uL (1.8-7.7); PLATELET COUNT (AUTO) 117 K/uL (130-430); RED BLOOD CELL COUNT(AUTO) 4.06 MIL/uL (4.2-6.2); RED CELL DISTRIBUTION WIDTH 16.9 % (9.0-15.0); WHITE BLOOD COUNT (AUTO) 5.8 K/uL (4.8-10.8)
[2018-05-18 07:20] LABS: INR 2.3 (0.8-1.2); PROTHROMBIN TIME 23.9 SECS (9.5-12.5)
[2018-05-18 08:00] VITALS: BP_SYST 155
[2018-05-18] MEDS: amLODIPine BESYLATE 10 MG TABLET PO SCH (08:57)
[2018-05-18] MEDS: PANTOPRAZOLE SODIUM 40 MG TAB PO SCH (08:58)
[2018-05-18] MEDS: levETIRAcetam 500 MG TABLET PO SCH (08:58)
[2018-05-18] MEDS: METOPROLOL TARTRATE 25 MG TABLET PO SCH (08:58)
[2018-05-18] MEDS: PREDNISONE 20 MG TABLET PO SCH (08:58)
[2018-05-18] MEDS ORDERED: HEPARIN SODIUM, PORCINE 10,000 UNITS/ 10 ML VIAL IV ONE (10:00)
[2018-05-18 15:53] VITALS: BP_SYST 126
[2018-05-18] MEDS ORDERED: WARFARIN SODIUM 4 MG TABLET PO SCH (18:00)
[2018-05-18] MEDS: HEPARIN 25,000 UNITS/D5W 250ML 250 ML IV PRN (18:18)
[2018-05-18 19:10] VITALS: BP_SYST 134
[2018-05-19 00:05] VITALS: BP_SYST 143
[2018-05-19] MEDS ORDERED: *HEPARIN PER PHARMACY XX ONE (01:45)
[2018-05-19] MEDS ORDERED: HEPARIN SODIUM,PORCINE 5000 UNITS/ML VIAL ONE (01:58)
[2018-05-19] MEDS ORDERED: COMMUNICATION ORDER XX ONE (02:00)
[2018-05-19] MEDS ORDERED: HEPARIN SODIUM,PORCINE 5000 UNITS/ML VIAL IVP ONE (02:00)
[2018-05-19] MEDS: HEPARIN 25,000 UNITS/D5W 250ML 250 ML IV PRN ×2 (02:12→13:40)
[2018-05-19] MEDS: OXYCODONE/ACETAMINOPHEN *10*mg/325 mg TABLET PO PRN ×2 (03:25→11:54)
[2018-05-19 04:00] VITALS: BP_SYST 156
[2018-05-19] MEDS: NORMAL SALINE 5 ML DISP.SYRIN IVF SCH ×3 (05:06→21:15)
[2018-05-19] MEDS: hydrALAZINE HCL 25 MG TABLET PO SCH ×3 (05:08→21:15)
[2018-05-19] MEDS: ONDANSETRON HCL 4 MG/2 ML VIAL IVP PRN ×2 (05:11→18:36)
[2018-05-19 08:00] VITALS: BP_SYST 141
[2018-05-19] MEDS: levETIRAcetam 500 MG TABLET PO SCH (08:33)
[2018-05-19] MEDS: PREDNISONE 20 MG TABLET PO SCH (08:33)
[2018-05-19] MEDS: PANTOPRAZOLE SODIUM 40 MG TAB PO SCH (08:34)
[2018-05-19] MEDS: amLODIPine BESYLATE 10 MG TABLET PO SCH (08:34)
[2018-05-19] MEDS: METOPROLOL TARTRATE 25 MG TABLET PO SCH (08:35)
[2018-05-19 08:52] LABS: INR 1.7 (0.8-1.2); PROTHROMBIN TIME 17.2 SECS (9.5-12.5)
[2018-05-19] MEDS: MORPHINE 4 MG/ML INJ. SYRINGE IVP PRN (09:18)
[2018-05-19] MEDS ORDERED: WARFARIN SODIUM 2 MG TABLET PO SCH ×2 (11:11→11:21)
[2018-05-19 12:52] VITALS: BP_SYST 144
[2018-05-19 17:23] VITALS: BP_SYST 139
[2018-05-19] MEDS ORDERED: WARFARIN SODIUM 5 MG TABLET ONE (19:00)
[2018-05-19] MEDS: WARFARIN SODIUM 5 MG TABLET PO SCH (19:04)
[2018-05-19 20:00] VITALS: BP_SYST 140
[2018-05-20 00:12] VITALS: BP_SYST 156
[2018-05-20] MEDS: HEPARIN 25,000 UNITS/D5W 250ML 250 ML IV PRN (01:05)
[2018-05-20] MEDS: hydrALAZINE HCL 25 MG TABLET PO SCH ×3 (05:08→21:42)
[2018-05-20] MEDS: NORMAL SALINE 5 ML DISP.SYRIN IVF SCH ×3 (05:08→21:43)
[2018-05-20 07:04] LABS: HEMATOCRIT 38.7 % (36-48); HEMOGLOBIN 12.7 g/dL (12.0-16.0); MEAN CORPUSCULAR HEMOGLOBIN 31 pg (27-31); MEAN CORPUSCULAR HGB CONC 33 % (32-36); MEAN CORPUSCULAR VOLUME 95 fL (79.0-98.0); PLATELET COUNT (AUTO) 129 K/uL (130-430); RED BLOOD CELL COUNT(AUTO) 4.09 MIL/uL (4.2-6.2); RED CELL DISTRIBUTION WIDTH 15.8 % (9.0-15.0); WHITE BLOOD COUNT (AUTO) 4.3 K/uL (4.8-10.8)
[2018-05-20 07:20] LABS: INR 2.8 (0.8-1.2); PROTHROMBIN TIME 28.9 SECS (9.5-12.5)
[2018-05-20] MEDS: MORPHINE 4 MG/ML INJ. SYRINGE IVP PRN (08:03)
[2018-05-20] MEDS: PREDNISONE 20 MG TABLET PO SCH (08:05)
[2018-05-20] MEDS: amLODIPine BESYLATE 10 MG TABLET PO SCH (08:06)
[2018-05-20] MEDS: levETIRAcetam 500 MG TABLET PO SCH (08:06)
[2018-05-20] MEDS: PANTOPRAZOLE SODIUM 40 MG TAB PO SCH (08:06)
[2018-05-20 08:09] VITALS: BP_SYST 163
[2018-05-20 08:26] LABS: BASOPHILS % (MANUAL) 0 % (0-2); EOSINOPHILS % (MANUAL) 0 % (0-7); LYMPHOCYTES % (MANUAL) 24 % (20-46); MONOCYTES % (MANUAL) 11 % (0-11)
[2018-05-20] MEDS: METOPROLOL TARTRATE 25 MG TABLET PO SCH (09:00)
[2018-05-20] MEDS: OXYCODONE/ACETAMINOPHEN *10*mg/325 mg TABLET PO PRN ×2 (10:16→16:12)
[2018-05-20 12:57] VITALS: BP_SYST 159
[2018-05-20 16:49] VITALS: BP_SYST 140
[2018-05-20] MEDS: ONDANSETRON HCL 4 MG/2 ML VIAL IVP PRN (17:27)
[2018-05-20] MEDS: WARFARIN SODIUM 5 MG TABLET PO SCH (18:14)
[2018-05-20 18:15] VITALS: BP_SYST 136
[2018-05-20] MEDS: DIPHENHYDRAMINE HCL 50 MG CAPSULE PO PRN (21:50)
[2018-05-21 03:27] VITALS: BP_SYST 146
[2018-05-21] MEDS: hydrALAZINE HCL 25 MG TABLET PO SCH ×2 (05:44→14:01)
[2018-05-21] MEDS: NORMAL SALINE 5 ML DISP.SYRIN IVF SCH (05:45)
[2018-05-21 06:41] LABS: BASOPHILS % (AUTO) 0.1 % (0.0-2.0); EOSINOPHILS % (AUTO) 0.2 % (0.0-4.0); HEMATOCRIT 37.9 % (36-48); HEMOGLOBIN 12.7 g/dL (12.0-16.0); LYMPHOCYTES # (AUTO) 0.6 K/uL (1.0-5.5); LYMPHOCYTES % (AUTO) 15.6 % (20.5-51.5); MEAN CORPUSCULAR HEMOGLOBIN 32 pg (27-31); MEAN CORPUSCULAR HGB CONC 34 % (32-36); MEAN CORPUSCULAR VOLUME 94 fL (79.0-98.0); MONOCYTES # (AUTO) 0.5 K/uL (0.0-1.0); MONOCYTES % (AUTO) 12.7 % (1.7-9.3); NEUTROPHILS # (AUTO) 2.5 K/uL (1.8-7.7); NEUTROPHILS % (AUTO) 71.4 % (40.0-70.0); PLATELET COUNT (AUTO) 147 K/uL (130-430); RED BLOOD CELL COUNT(AUTO) 4.02 MIL/uL (4.2-6.2); RED CELL DISTRIBUTION WIDTH 15.6 % (9.0-15.0); WHITE BLOOD COUNT (AUTO) 3.6 K/uL (4.8-10.8)
[2018-05-21 08:03] LABS: PROTHROMBIN TIME 51.8 SECS (9.5-12.5)
[2018-05-21 08:25] VITALS: BP_SYST 156
[2018-05-21] MEDS: levETIRAcetam 500 MG TABLET PO SCH (10:44)
[2018-05-21] MEDS: PREDNISONE 20 MG TABLET PO SCH (10:45)
[2018-05-21] MEDS: PANTOPRAZOLE SODIUM 40 MG TAB PO SCH (10:45)
[2018-05-21] MEDS: METOPROLOL TARTRATE 25 MG TABLET PO SCH (10:46)
[2018-05-21] MEDS: amLODIPine BESYLATE 10 MG TABLET PO SCH (10:46)
[2018-05-21 13:26] VITALS: BP_SYST 148
== END 2018-05-21 14:20 | disposition home or self-care (01) | DRG 299 ==
LOC: SED 21:56 → SMU 05-15 00:29
PROVIDERS: ADMIT Family Medicine; ATTEND Family Medicine
PROC: 5A1D70Z Performance of Urinary Filtration, Intermittent, Less than 6 Hours Per Day (ICD-10-PCS; principal; 2018-05-15)
PROC: 5A1D70Z Performance of Urinary Filtration, Intermittent, Less than 6 Hours Per Day (ICD-10-PCS; 2018-05-18)
PROC: 5A1D70Z Performance of Urinary Filtration, Intermittent, Less than 6 Hours Per Day (ICD-10-PCS; 2018-05-20)
DX: I82.B11 Acute embolism and thrombosis of right subclavian vein (principal); N18.6 End stage renal disease; I12.0 Hypertensive chronic kidney disease with stage 5 chronic kidney disease or end stage renal disease; M32.9 Systemic lupus erythematosus, unspecified; D64.9 Anemia, unspecified; G40.909 Epilepsy, unspecified, not intractable, without status epilepticus; I82.C11 Acute embolism and thrombosis of right internal jugular vein; Z79.01 Long term (current) use of anticoagulants; Z99.2 Dependence on renal dialysis; Z88.1 Allergy status to other antibiotic agents; Z88.8 Allergy status to other drugs, medicaments and biological substances; Z79.899 Other long term (current) drug therapy
CPT/HCPCS: 36415; 71045; 80053; 85007; 85025; 85027; 85610-TC; 85730-TC; 87081; 90935; 90937; 93971; 96372; 96374; 96376; 99285; J1644; J1650; J2270; J2405; J7030; J7512; Q0163

== ENCOUNTER 2018-05-27 20:27 | Emergency (ER) | payer OTHER, MEDICAID ==
[~2018-05-27] VITALS: Ht 162.6 cm; Wt 49.4 kg
[2018-05-27 20:27] VITALS: BP_SYST 166
[~2018-05-27 20:27] MED LIST changes: -FLA250 PO
[2018-05-27 21:10] VITALS: BP_SYST 151
== END 2018-05-27 21:10 | disposition home or self-care (01) ==
LOC: SED 20:27
DX: T82.838A Hemorrhage due to vascular prosthetic devices, implants and grafts, initial encounter (principal); I12.0 Hypertensive chronic kidney disease with stage 5 chronic kidney disease or end stage renal disease; N18.6 End stage renal disease; L93.0 Discoid lupus erythematosus; Z99.2 Dependence on renal dialysis; Z88.1 Allergy status to other antibiotic agents; Z88.5 Allergy status to narcotic agent; Z79.899 Other long term (current) drug therapy; Y83.9 Surgical procedure, unspecified as the cause of abnormal reaction of the patient, or of later complication, without mention of misadventure at the time of the procedure; Y92.89 Other specified places as the place of occurrence of the external cause
CPT/HCPCS: 99283

== ENCOUNTER 2018-08-19 18:18 | Emergency (ER) | payer OTHER, MEDICAID ==
[~2018-08-19] VITALS: Ht 165.1 cm; Wt 47.6 kg
[2018-08-19 18:18] VITALS: BP_SYST 204
[~2018-08-19 18:18] MED LIST changes: -LEVE500T13 PO; +LEVE500T9 PO
[2018-08-19] MEDS ORDERED: PROMETHAZINE HCL 50 MG/ML AMP IM ONE (18:45)
[2018-08-19] MEDS ORDERED: MEPERIDINE HCL/PF 100 MG/ML AMP IM ONE (18:45)
[2018-08-19] MEDS ORDERED: PROCHLORPERAZINE EDISYLATE 10 MG/2 ML VIAL IM ONE (19:00)
[2018-08-19 19:20] VITALS: BP_SYST 13
== END 2018-08-19 19:20 | disposition home or self-care (01) ==
LOC: SED 18:18
DX: S90.01XA Contusion of right ankle, initial encounter (principal); I12.0 Hypertensive chronic kidney disease with stage 5 chronic kidney disease or end stage renal disease; N18.6 End stage renal disease; Z99.2 Dependence on renal dialysis; Z88.1 Allergy status to other antibiotic agents; Z88.5 Allergy status to narcotic agent; Z79.899 Other long term (current) drug therapy; W20.8XXA Other cause of strike by thrown, projected or falling object, initial encounter; Y93.89 Activity, other specified; Y92.89 Other specified places as the place of occurrence of the external cause; Y99.8 Other external cause status
CPT/HCPCS: 73600; 96372; 99284; J0780; J2175; J2550

== ENCOUNTER 2018-08-21 20:15 | Inpatient (IN) | payer OTHER, MEDICAID ==
[~2018-08-21] VITALS: Ht 154.9 cm; Wt 49.4 kg
[2018-08-21 20:49] VITALS: BP_SYST 171
--- NOTE | 2018-08-21 21:52 | NUR ---
Pt ambulatory to bed 4 for evaluation
--- NOTE | 2018-08-21 21:55 | NUR ---
Pt complains of pain to right foot, swelling and erythema noted. Pt states she dropped a metal pot on her foot a few days ago. Pt is able to ambulate but complains of pain. Per patient, pain is "burning sensation." Pt denies fever and vomiting but feels nauseous. No other injuries/complaints per patient or noted.
--- NOTE | 2018-08-21 22:00 | NUR ---
JACQUELINE Emery at bedside examining patient.
[2018-08-21] MEDS ORDERED: MORPHINE 4 MG/ML INJ. SYRINGE IVP ONE (22:15)
[2018-08-21] MEDS ORDERED: DIPHENHYDRAMINE INJ 50 MG/ML VIAL IVP ONE (22:15)
[2018-08-21 23:00] LABS: CALCIUM 8.4 mg/dL (8.4-11.0)
[2018-08-21 23:05] LABS: ALBUMIN 3.1 g/dL (3.4-4.8); POTASSIUM 5.7 mmol/L (3.5-5.1); TOTAL BILIRUBIN 0.4 mg/dL (0.0-1.0)
[2018-08-21 23:11] LABS: BASOPHILS % (AUTO) 0.3 % (0.0-2.0); EOSINOPHILS % (AUTO) 0.1 % (0.0-4.0); HEMATOCRIT 27.4 % (36-48); HEMOGLOBIN 8.6 g/dL (12.0-16.0); LYMPHOCYTES # (AUTO) 0.7 K/uL (1.0-5.5); LYMPHOCYTES % (AUTO) 10.2 % (20.5-51.5); MEAN CORPUSCULAR HEMOGLOBIN 30 pg (27-31); MEAN CORPUSCULAR HGB CONC 32 % (32-36); MEAN CORPUSCULAR VOLUME 96 fL (79.0-98.0); MONOCYTES # (AUTO) 0.1 K/uL (0.0-1.0); MONOCYTES % (AUTO) 2.2 % (1.7-9.3); NEUTROPHILS # (AUTO) 5.6 K/uL (1.8-7.7); NEUTROPHILS % (AUTO) 87.2 % (40.0-70.0); PLATELET COUNT (AUTO) 120 K/uL (130-430); RED BLOOD CELL COUNT(AUTO) 2.85 MIL/uL (4.2-6.2); RED CELL DISTRIBUTION WIDTH 17.5 % (9.0-15.0); WHITE BLOOD COUNT (AUTO) 6.4 K/uL (4.8-10.8)
[2018-08-21 23:16] LABS: CREATININE 12.73 mg/dL (0.55-1.30)
--- NOTE | 2018-08-21 23:17 | NUR ---
Medications were given to patient, pt tolerated well. No adverse reaction, will continue to monitor.
[2018-08-21] MEDS ORDERED: SODIUM POLYSTYRENE SULFONATE 15 GM/60 ML UDBTL PO ONE (23:30)
[2018-08-21] MEDS ORDERED: INSULIN REGULAR, HUMAN 10 UNITS/0.1 ML INJ IVP ONE (23:30)
[2018-08-21] MEDS ORDERED: DEXTROSE 50% JECT 50 ML DISP.SYRIN IVP ONE (23:30)
[2018-08-22] VITALS (8 sets, daily range): BP systolic 115–148
[2018-08-22] MEDS ORDERED: ONDANSETRON HCL 4 MG/2 ML VIAL IVP ONE (00:15)
--- NOTE | 2018-08-22 00:23 | NUR ---
Lab at patient bedside. Patient refused to get second lactic drawn. Dr. Emery aware.
[2018-08-22] MEDS ORDERED: cloNIDine HCL 0.1 MG TABLET PO ONE (00:30)
[2018-08-22] MEDS ORDERED: MORPHINE 4 MG/ML INJ. SYRINGE IVP ONE (00:45)
--- NOTE | 2018-08-22 01:08 | NUR ---
Seizure precautions in place. Seizure pads applied to gurney. Side rails up.
[2018-08-22] MEDS ORDERED: LORazepam 2 MG/ML VIAL (FOR ER USE) ONE (01:10)
--- NOTE | 2018-08-22 01:10 | NUR ---
Raymundo uriostegui in EDM - 08/22/18 at 0116 by [email or web address] Verbal order received from Dr. Emery for Keppra 1000mg IV push stat for seizure.
[2018-08-22] MEDS ORDERED: LORazepam 2 MG/ML VIAL IVP ONE (01:15)
[2018-08-22] MEDS ORDERED: levETIRAcetam 1,000 MG in NS 100 ML IV ONE (01:15)
--- NOTE | 2018-08-22 01:29 | NUR ---
Patient will be admitted to care of Dr. oStelo. Admitted to Telemetry unit. Will go to room 101 A. Belongings list completed. Summary report printed. Report will be given at bedside.
--- NOTE | 2018-08-22 01:29 | NUR ---
ADMISSION NOTE Received patient from ER via gurney. Patient admitted with diagnosis of End Stage Renal Disease. Patient is awake, alert, oriented X 4. Patient oriented to hospital room, call light, toileting, pain management and safety-teach back done. Patient informed that MAG Gamez will be primary nurse and that their room number is 101A. Personal belongings checked and Belongings List documented. Call light within reach.
--- NOTE | 2018-08-22 02:13 | NUR ---
Patient is resting comfortably in bed sleeping. No SOB, no acute distress, no signs of pain or facial grimacing. Breathing is even and unlabored with visible chest rise and fall, snoring. Bed is locked, in the lowest position, 3x side rails up, bed alarm is on, seizure pads installed on all rails. Call light is within reach. Respiratory at the bedside to perform EKG. Patient was aroused by heavy stimulation, patient is very drowsy and lethargic, tracks with eyes but falls asleep immediately after being woken. EKG done, patient tolerated procedure well. Addendum: 08/22/18 at 0642 by Vera Alfaro RN Continuation of notes Patient also arrived from the ED with 3 and 1/2 a bottle of Kayexalate. Ed nurse stated that the patient was having difficulties finishing the kayexalate, but now is too lethargic to drink it.
--- NOTE | 2018-08-22 02:20 | NUR ---
CONSULTATION PAGED/CALLED Reason for Consultation: ESRD Person Who was Notified: ELLA Consulting Physician: DOCTOR ALMA MELLO IS DINING CHAIR SEAT CUSHION TRIMMER Independent Jeweler Specialty: NEPHRO Ordering Physician: EVI
[2018-08-22] MEDS ORDERED: PIPERACILLIN/TAZOBACTAM 2.25 GM VIAL IV ONE (03:02)
[2018-08-22] MEDS: PIPERACILLIN/TAZO 2.25G/DEX-IS 50 ML IV SCH ×2 (03:10→14:01)
--- NOTE | 2018-08-22 04:45 | NUR ---
Patient is resting comfortably in bed sleeping. No SOb, no acute distress, no signs of pain or facial grimacing. Breathing is even and unlabored with visible chest rise and fall noted. Bed is locked, in the lowest position, 2x side rails up, bed alarm is on. Call light is within reach.
--- NOTE | 2018-08-22 05:40 | NUR ---
Patient is awake, resting comfortably in bed. No SOB, no acute distress, no complaints of pain at this time. Patient is AAOx2 to name and date. Patient doesn't recall why she is at the hospital at this time. Reoriented patient to current situation, and patient verbalized understanding. Also provided patient with apple juice per patient request. Bed is locked, in the lowest position, 2x side rails up, bed alarm is on. Oriented patient to hospital system, call light, and the room. Patient verbalizes understanding of plan of care. Will continue with plan of care. Encouraged patient to call for assistance.
--- NOTE | 2018-08-22 06:00 | NUR ---
Patient had an episode of vomiting. Provided emesis bag for the patient.
--- NOTE | 2018-08-22 06:42 | NUR ---
Dr Loo at the bedside to see the patient. Dr Loo stated to discard all of the kayexalate medication for this patient, because he will order dialysis for this patient to correct the potassium.
[2018-08-22] MEDS ORDERED: hydrALAZINE HCL 20 MG/ML VIAL IVP PRN (06:45)
--- NOTE | 2018-08-22 06:56 | NUR ---
Patient is complaining of severe 10/10 pain in her shoulders, neck, and head. Called Dr Sotelo. Dr Sotelo ordered for Morphine 2mg IVP PRN for moderate (4-6) pain, and Morphine 4mg IVP PRN for severe (7-10) pain.
--- NOTE | 2018-08-22 07:15 | NUR ---
Closing Notes Handoff report given to oncoming dayshift nurse at the bedside. Patient is awake and alert, laying in bed, still complaining of severe 10/10 pain. Called pharmacy to inquire about the morphine dose, they stated they will put it in. IV site is intact, dressing clean and dry. Bed is locked, in the lowest position, 3x side rails up, bed alarm is on. Call light is within reach. Fall, seizure, and safety precautions maintained. All needs have been met during this shift.
--- NOTE | 2018-08-22 07:36 | NUR ---
Notified A[facility] Director regarding Flu vaccine. Flu vaccine standard order set states to give the flu vaccine at 0.5mcg, instead of 0.5mL. Aicha stated that she will be contacting IT to fix the order set to the correct dose for this medication.
--- NOTE | 2018-08-22 07:50 | NUR ---
INITIAL NOTE RECEIVED PATIENT FROM INTERPRETIVE NATURALIST. PATIENT AWAKE IN BED. ALERT AND ORIENTED. C/O SEVERE PAIN TO RIGHT SHOULDER; WILL MEDICATE ORDERED. ROOM AIR. NO ACUTE DISTRESS. NO SOB. RESPIRATION EVEN AND UNLABORED. SKIN WARM AND DRY TO TOUCH. IV TO RFA INTACT AND PATENT WITH NO S/SX INFECTION/INFILTRATION NOTED. BED IN LOW AND LOCKED POSITION. PADDED SIDERAIL UP X3. BED ALARM ON. ORIENTED PATIENT TO CALL LIGHT AND TO USE FOR ASSIST; PT VERBALIZED UNDERSTANDING. ALL NEEDS MET. CALL LIGHT IN REACH. CONT TO MONITOR.
[2018-08-22] MEDS: MORPHINE 4 MG/ML INJ. SYRINGE IVP PRN ×2 (07:57→16:11)
[2018-08-22] MEDS: ONDANSETRON HCL 4 MG/2 ML VIAL IVP PRN (08:37)
--- NOTE | 2018-08-22 09:25 | NUR ---
OFF UNIT PATIENT TAKEN OFF UNIT TO RADIOLOGY FOR CT VIA WHEELCHAIR. VITAL SIGN STABLE.
--- NOTE | 2018-08-22 09:52 | NUR ---
ON UNIT/HD PATIENT RETURNED TO ROOM FROM CT VIA WHEELCHAIR. VITAL SIGN STABLE. DIALYSIS NURSE AT BEDSIDE SETTING UP FOR PATIENT'S HD. PATIENT IS AWAKE, ALERT, ORIENTED. ALL NEEDS MET. CALL LIGHT IN REACH. CONT TO MONITOR.
--- NOTE | 2018-08-22 10:00 | NUR ---
SEEN AND EXAMINED BY AT BEDSIDE. CONT TO MONITOR.
--- NOTE | 2018-08-22 10:52 | NUR ---
Nutrition Update Guillaume Scale 18 noted. Pt admitted for cellulitis, ESRD. Diet: renal BMI: 22.5 kg/m2 RD to follow per nutrition care standards.
[2018-08-22] MEDS: MORPHINE 2 MG/ML INJ. SYRINGE IVP PRN (11:17)
--- NOTE | 2018-08-22 12:00 | NUR ---
NOTES PATIENT AWAKE, SITTING UP IN BED. TOLERATING HEMODIALYSIS WITH NO COMPLICATIONS NOTED AT THIS TIME. ALL NEEDS MET. CONT TO MONITOR. DIALYSIS NURSE AT BEDSIDE.
--- NOTE | 2018-08-22 13:30 | NUR ---
HD HEMODIALYSIS COMPLETED WITH 3 LITERS OUT. BP 140/80 HR 118. PATIENT DENIES ANY PAIN/DISCOMFORT AT THIS TIME. ALL NEEDS MET. CALL LIGHT IN REACH. CONT TO MONITOR. FRIEND AT BEDSIDE. Addendum: 08/22/18 at 193 by Maria G Hernandez RN 3.4 LITERS OUT Addendum: 08/22/18 at 1947 by Maria G Hernandez RN WEIGHT AFTER DIALYSIS 119.9 LBS
--- NOTE | 2018-08-22 14:20 | NUR ---
PAGED REGARDING PATIENT'S HEART RATE STEADILY AT 140s. PATIENT DENIES ANY CHEST PAIN/DISCOMFORT. AWAITING FOR CALL BACK.
--- NOTE | 2018-08-22 15:00 | NUR ---
PAGED X2 REGARDING PATIENT'S HEART RATE. AWAITING FOR CALL BACK. PATIENT IS STABLE WITH MOTHER AT BEDSIDE. CONT TO MONITOR.
--- NOTE | 2018-08-22 15:28 | NUR ---
SPOKE TO . REPORTED TO MD PATIENT HR IS 140-150s BUT PATIENT IS STABLE AND BP IS 145/88. RECEIVED NEW ORDER FOR CONSULT WITH AND EKG STAT; ORDER CLARIFIED, VERIFIED AND CARRIED OUT. CONT TO MONITOR.
--- NOTE | 2018-08-22 15:45 | NUR ---
CARDIAC CONSULT For Dr. Amaya ,spoke to Allie , reason for consult tachycardia
--- NOTE | 2018-08-22 15:50 | NUR ---
DR.JANDIAL GROVER AT NURSES STATION. INFORMED MD PATIENT'S MEDICATION HAS NOT BEEN RECONCILED. MD WILL PUT IN ORDERS
[2018-08-22] MEDS ORDERED: METOPROLOL TARTRATE 25 MG TABLET PO ONE (16:00)
[2018-08-22] MEDS ORDERED: NS 100 ML IV ONE (17:30)
--- NOTE | 2018-08-22 17:35 | NUR ---
SEEN AND EXAMINED BY AT BEDSIDE. REPORTED TO MD ABOUT PATIENT'S HEART RATE AND PATIENT HAD DIALYSIS TODAY WITH 3.4 LITERS REMOVED. CURRENT BP 145/96, HR 123. INFORMED MD PATIENT ALSO HAS A TEMP OF 101.6 AT THIS TIME. OKAY TO ORDER TYLENOL FOR FEVER AND WILL CONSULT WITH NEPHRO REGARDING PATIENT'S STATUS. Addendum: 08/22/18 at 1937 by Maria G Hernandez RN STATED THAT HE WILL BE ORDERING 500ML OF NORMAL SALINE BOLUS X1; MD WILL PUT IN ORDER.
[2018-08-22] MEDS: EPOETIN ALFA 10,000 UNITS/ML VIAL SUBCUT SCH (17:42)
[2018-08-22] MEDS ORDERED: ACETAMINOPHEN 325 MG TABLET PO PRN (17:45)
[2018-08-22] MEDS ORDERED: NACL 0.9% 1,000 ML IV ONE (18:45)
[2018-08-22] MEDS: ACETAMINOPHEN 500 MG TABLET PO PRN (18:50)
--- NOTE | 2018-08-22 18:50 | NUR ---
CLOSING NOTE PATIENT AWAKE IN BED. DENIES DISCOMFORT AT THIS TIME. NO ACUTE DISTRESS. NO SOB. RESPIRATION EVEN AND UNLABORED. SKIN WARM AND DRY TO TOUCH. IV INTACT AND PATENT WITH NO S/SX INFECTION/INFILTRATION NOTED. AUSTIN IV FLUID ORDERED. TYLENOL ADMINISTERED FOR FEVER, AUSTIN WELL WITH COOLING MEASURES CONTINUED. BED IN LOW AND LOCKED POSITION. PADDED SIDERAIL UPX3. BED ALARM ON. CALL LIGHT IN REACH. ALL NEEDS MET. CONT TO MONITOR. WILL ENDORSE TO ONCOMING SHIFT. AT BEDSIDE.
[2018-08-22] MEDS ORDERED: NS 500 ML IV ONE (19:00)
--- NOTE | 2018-08-22 19:20 | NUR ---
INITIAL NOTES Received handoff report from offgoing nurse at the bedside. Patient is awake and alert, resting comfortably in bed. Samuel is at the bedside. No SOB, no acute distress, no signs of pain or discomfort. Bed is locked, in the lowest position, 2x side rails up, bed alarm is on. Call light is within reach. Encouraged patient to call for assistance. Will continue with plan of care.
[2018-08-22] MEDS: levETIRAcetam 500 MG TABLET PO SCH (20:43)
[2018-08-22] MEDS: METOPROLOL TARTRATE 25 MG TABLET PO SCH (20:44)
[2018-08-22] MEDS: hydrALAZINE HCL 10 MG TABLET PO SCH (20:45)
--- NOTE | 2018-08-22 22:00 | NUR ---
Patient's oxygen saturation drops down to 82% on room air. Provided patient with 1L NC, patient previously keeps taking the nasal cannula off. Educated patient on the importance of supplemental oxygen. Patient verbalizes understanding at this time.
--- NOTE | 2018-08-22 22:51 | NUR ---
Patient called for assistance. Patient has a blood nose and is wiping the blood on her blanket. She took the nasal cannula off. Provide patient with tissues and a new clean blanket. Nose bleed stopped. Patient refuses to put the nasal cannula on at this time. Oxygen saturation is at 91%. Will continue to monitor closely.
--- NOTE | 2018-08-22 23:36 | NUR ---
Patient is resting comfortably in bed with eyes closed, easily aroused by voice. No SOB, no acute distress, no complaints of pain at this time. Patient came off the tele monitor leads. She was turned on her left side and the leads were no longer sticking to her chest. Changed the leads. Patient is now showing Sinus tachycardia on the monitor. Bed is locked, in the lowest position, 2x side rails up, bed alarm is on. Call light is within reach. Encouraged patient to call for assistance. Will continue to monitor closely.
[2018-08-23] MEDS: ACETAMINOPHEN 500 MG TABLET PO PRN (00:44)
--- NOTE | 2018-08-23 00:46 | NUR ---
Patient is complaining of a headache 3/. Provided Tylenol PRN per MD order, see eMAR for details.
--- NOTE | 2018-08-23 01:00 | NUR ---
Patient had an episode of bowel incontinence in the bathroom floor. Patient attempted to get up to use the restroom, but did not make it to the toilet. Patient used the call light in the restroom to ask for assistance, and was found on the toilet with the gown on the floor and soft brown stool on the floor as well. Promptly assisted the patient to clean up and provided a new gown for the patient. Called EVS to clean up the poop. Patient is now clean and dry, resting comfortably in bed. Call light within reach, encouraged patient to call for assistance.
[2018-08-23] MEDS: MORPHINE 4 MG/ML INJ. SYRINGE IVP PRN ×2 (01:11→18:05)
--- NOTE | 2018-08-23 01:59 | NUR ---
Patient is resting comfortably in bed, awake. No SOB, no acute distress, no complaints of pain at this time. Bed is locked, in the lowest position, 2x side rails up, bed alarm is on. Call light is within reach. Encouraged patient to call for assistance.
[2018-08-23] MEDS: PIPERACILLIN/TAZO 2.25G/DEX-IS 50 ML IV SCH ×2 (02:25→13:51)
--- NOTE | 2018-08-23 04:00 | NUR ---
Patient is resting comfortably in bed. awake. No SOB, no acute distress, no complaints of pain at this time. Bed is locked, in the lowest position, 2x side rails up, bed alarm is on. Call light is within reach, encouraged patient to call for assistance.
[2018-08-23] MEDS: ONDANSETRON HCL 4 MG/2 ML VIAL IVP PRN (05:56)
--- NOTE | 2018-08-23 05:58 | NUR ---
Patient states that she feels nauseated. Provided zofran PRN per MD order, see eMAR for details.
[2018-08-23 06:33] LABS: LYMPHOCYTES # (AUTO) 0.4 K/uL (1.0-5.5); MONOCYTES # (AUTO) 0.8 K/uL (0.0-1.0); NEUTROPHILS # (AUTO) 6.7 K/uL (1.8-7.7); RED BLOOD CELL COUNT(AUTO) 2.66 MIL/uL (4.2-6.2); RED CELL DISTRIBUTION WIDTH 17.6 % (9.0-15.0)
[2018-08-23 06:57] LABS: ALBUMIN 2.6 g/dL (3.4-4.8); CALCIUM 8.1 mg/dL (8.4-11.0); POTASSIUM 4.6 mmol/L (3.5-5.1); THYROID STIMULATING HORMONE 4.86 uIu/mL (0.34-4.82); TOTAL BILIRUBIN 0.5 mg/dL (0.0-1.0)
[2018-08-23] MEDS ORDERED: METOCLOPRAMIDE HCL 10 MG/2 ML VIAL IVP ONE (07:00)
[2018-08-23] MEDS ORDERED: METOCLOPRAMIDE HCL 10 MG/2 ML VIAL IVP PRN (07:15)
[2018-08-23 07:17] LABS: CREATININE 8.04 mg/dL (0.55-1.30)
--- NOTE | 2018-08-23 07:20 | NUR ---
SEEN AND EXAMINED BY AT BEDSIDE. REPORTED TO PATIENT CRITICAL LAB OF CREATININE 8.04; STATED HE WILL ORDER DIALYSIS TOMORROW. ALSO REPORTED TO THAT PATIENT DOES NOT HAVE ANY DVT PPX AND SCD IS CONTRAINDICATED DUE TO CELLULITIS OF LOWER EXTREMITY; STATED HE WILL NOT ORDER DVT PPX AT THIS TIME.
--- NOTE | 2018-08-23 07:28 | NUR ---
CLOSING NOTES Handoff report given to oncoming dayshift nurse at the bedside. Patient is awake and alert, resting comfortably in bed. No SOB, no acute distress, no complaints of pain at this time. Bed is locked, in the lowest position, 2x side rails up, bed alarm is on. Call light is within reach. Fall and safety precautions maintained. All needs have been met during this shift.
[2018-08-23 07:33] LABS: HEMATOCRIT 25.5 % (36-48); HEMOGLOBIN 8.4 g/dL (12.0-16.0); LYMPHOCYTES % (AUTO) 4.9 % (20.5-51.5); MEAN CORPUSCULAR HEMOGLOBIN 32 pg (27-31); MEAN CORPUSCULAR HGB CONC 33 % (32-36); MEAN CORPUSCULAR VOLUME 96 fL (79.0-98.0); PLATELET COUNT (AUTO) 93 K/uL (130-430)
[2018-08-23 07:34] LABS: BASOPHILS % (AUTO) 0.4 % (0.0-2.0); EOSINOPHILS # (AUTO) 0.1 K/uL (0.0-0.4)
--- NOTE | 2018-08-23 07:35 | NUR ---
INITIAL NOTE PATIENT IS AWAKE, ALERT, ORIENTED. ADMINISTERED REGLAN ORDERED FOR NAUSEA, AUSTIN WELL. ROOM AIR. NO ACUTE DISTRESS. NO SOB. RESPIRATION EVEN AND UNLABORED. SKIN WARM AND DRY TO TOUCH. IV INTACT AND PATENT TO RFA WITH NO S/SX INFECTION/INFILTRATION NOTED. BED IN LOW AND LOCKED POSITION. PADDED SIDERAIL UPX3. BED ALARM ON. ALL NEEDS MET. CALL LIGHT IN REACH. CONT TO MONITOR. PATIENT RECEIVING 2D ECHO AT BEDSIDE AT THIS TIME, AUSTIN WELL.
[2018-08-23 08:00] VITALS: BP_SYST 134
--- NOTE | 2018-08-23 08:10 | NUR ---
2D ECHO 2D ECHO WAS DONE AT BEDSIDE. PATIENT WITH EF 64% . CONT TO MONITOR
[2018-08-23 08:24] LABS: NEUTROPHILS % (AUTO) 83.7 % (40.0-70.0)
[2018-08-23] MEDS: hydrALAZINE HCL 10 MG TABLET PO SCH ×2 (08:42→21:47)
[2018-08-23] MEDS: levETIRAcetam 500 MG TABLET PO SCH ×2 (08:42→21:47)
[2018-08-23] MEDS: PREDNISONE 20 MG TABLET PO SCH (08:43)
[2018-08-23] MEDS: METOPROLOL TARTRATE 25 MG TABLET PO SCH ×2 (08:43→21:48)
[2018-08-23] MEDS: PANTOPRAZOLE SODIUM 40 MG TAB PO SCH (08:44)
[2018-08-23] MEDS: amLODIPine BESYLATE 10 MG TABLET PO SCH (08:44)
--- NOTE | 2018-08-23 08:48 | NUR ---
MEDS SITTING UP IN BED. ALL DUE MEDS ADMINISTERED ORDERED, AUSTIN WELL. CONT TO MONITOR. CALL LIGHT IN REACH.
--- NOTE | 2018-08-23 08:52 | NUR ---
SEEN AND EXAMINED BY AT BEDSIDE. CONT TO MONITOR
[2018-08-23] MEDS ORDERED: amLODIPine BESYLATE 10 MG TABLET PO SCH (09:00)
[2018-08-23] MEDS ORDERED: METOPROLOL TARTRATE 25 MG TABLET PO SCH (09:00)
--- NOTE | 2018-08-23 11:00 | NUR ---
SEEN AND EXAMINED BY AT BEDSIDE. CONT TO MONITOR.
--- NOTE | 2018-08-23 11:30 | NUR ---
NOTES PATIENT STATED SHE FEELS A LOT BETTER TODAY COMPARED TO YESTERDAY. VITAL SIGN STABLE. NO ACUTE DISTRESS. NO SOB. ALL NEEDS MET. CONT TO MONITOR.
[2018-08-23 12:23] VITALS: BP_SYST 138
--- NOTE | 2018-08-23 13:00 | NUR ---
NOTES REQUESTED FOR JOSE; ALL NEEDS MET. AT BEDSIDE. CONT TO MONITOR. CALL LIGHT IN REACH.
--- NOTE | 2018-08-23 13:54 | NUR ---
IV ATB ZOSYN IVPB ADMINISTERED ORDERED, AUSTNI WELL. NO S/SX ASE NOTED. ALL NEEDS MET. CONT TO MONITOR. AT BEDSIDE.
--- NOTE | 2018-08-23 15:28 | NUR ---
NOTES PATIENT RESTING COMFORTABLY IN BED. RISE/FALL OF CHEST NOTED. NO ACUTE DISTRESS. NO SOB. RESPIRATION EVEN AND UNLABORED. CONT TO MONITOR. CALL LIGHT IN REACH.
[2018-08-23 16:00] VITALS: BP_SYST 149
--- NOTE | 2018-08-23 16:20 | NUR ---
IV RE-INSERTION: Complaining of pain to IV site; IV removed with catheter intact. Restarted on right wrist. Successful after x1 attempts. IV with good blood return and flushes freely. Will observe for any signs of infiltration.
--- NOTE | 2018-08-23 16:26 | NUR ---
DC Planning: CM attempted to speak with pt. yesterday and today. The pt. was unable to stay awake for the assessment. CM s/w Lev, spouse via phone for initial assessment and dcp to snf. Lev agreed with [facility] snf transfer upon discharge. Lev made aware of the snf vendor choices, he wants the snf close by his home. Cm will search for the snf who will can provide transportation to and from ctr. Dr. Shady ALBRIGHT in [facility]. Addendum: 08/24/18 at 1304 by Carine Barillas RN DC Planning: Cm met with pt. today, the pt. is aaox4 today and able to answer questions appropriately. Informed pt. about dcp to snf. the pt. refused going to snf. She stated there is no need to go there since she is feeling better and improving. Dr. Sotelo made aware.
--- NOTE | 2018-08-23 18:10 | NUR ---
PAIN MED PATIENT C/O RIGHT LOWER EXT PAIN 07/24. VITAL SIGNS STABLE. ADMINISTERED MORPHINE ORDERED, AUSTIN WELL. ALL NEEDS MET. CONT TO MONITOR.
--- NOTE | 2018-08-23 18:34 | NUR ---
CLOSING NOTE PATIENT RESTING IN BED AWAKE. PATIENT STATED PAIN MEDICATION IS HELPING WITH LOWER LEG PAIN. NO ACUTE DISTRESS. NO SOB. RESPIRATION EVEN AND UNLABORED. SKIN WARM AND DRY TO TOUCH. IV INTACT AND PATENT. BED IN LOW AND LOCKED POSITION. PADDED SIDERAIL UPX3. NO S/SX SEIZURE ACTIVITY NOTED THROUGHOUT SHIFT. BED ALARM ON. CALL LIGHT IN REACH. CONTINUE TO MONITOR. WILL ENDORSE TO ONCOMING SHIFT.
--- NOTE | 2018-08-23 19:20 | NUR ---
OPENING NOTES RECEIVED PATIENT IN BED AAO X4. DENIES PAIN AT THIS TIME. BREATHING UNLABORED ON ROOM AIR. PLAN OF CARE REVIEWED WITH PATIENT. BED ALARM ON. CALL LIGHT WITHIN REACH. BED IN LOWEST LOCKED POSITION.
[2018-08-23 21:45] VITALS: BP_SYST 151
--- NOTE | 2018-08-23 21:50 | NUR ---
MED PASS DUE MEDICATIONS GIVEN AND TOLERATED. NO DISTRESS NOTED. CALL LIGHT WITHIN REACH.
[2018-08-24] VITALS (7 sets, daily range): BP systolic 122–160
--- NOTE | 2018-08-24 00:15 | NUR ---
N/V/PAIN MGT PATIENT VOMITED SMALL AMOUNT OF UNDIGESTED FOOD. REGLAN IVP GIVEN ORDERED. PATIENT C/O RT SHOULDER AND RT UPPER BACK PAIN 06/23. MEDICATED WITH MORPHINE ORDERED.
[2018-08-24] MEDS: MORPHINE 4 MG/ML INJ. SYRINGE IVP PRN (00:18)
[2018-08-24] MEDS: PIPERACILLIN/TAZO 2.25G/DEX-IS 50 ML IV SCH ×2 (02:23→17:30)
--- NOTE | 2018-08-24 02:25 | NUR ---
ATB DUE ANTIBIOTIC INFUSED ORDERED. IV LINE INTACT. DENIES PAIN ANY PAIN. CALL LIGHT WITHIN EASY REACH. BED ALARM ON.
[2018-08-24] MEDS: ONDANSETRON HCL 4 MG/2 ML VIAL IVP PRN ×2 (04:44→11:29)
--- NOTE | 2018-08-24 04:47 | NUR ---
BP BP 161/119. APRESOLINE IV GIVEN ORDERED. IV LINE INTACT. PATIENT NAUSEATED. ZOFRAN IV GIVEN ORDERED.
--- NOTE | 2018-08-24 06:03 | NUR ---
BP BP DOWN TO 130/79 POST APRESOLINE DOSE. DENIES BEING NAUSEATED AT THIS TIME.
--- NOTE | 2018-08-24 06:35 | NUR ---
CLOSING NOTES PATIENT RESTING IN BED. NO DISTRES NOTED. NEEDS ATTENDED. CALL LIGHT WITHIN REACH. BED ALARM ON. BED IN LOWEST LOCKED POSITION.
--- NOTE | 2018-08-24 08:15 | NUR ---
AM ASSESSMENT PT AA/O X 4, SPEAKS SIERRA LEONEAN WITH MINIMAL ICELANDIC, AND IS COOPERATIVE, PT COMPLAINING OF MILD PAIN AT THE SITE OF RLE CELLULITIS, SWELLING AND BLISTERING NOTED, PT REFUSES PAIN MEDICATION AT THIS TIME BUT PLAN OF CARE AND PAIN MANAGEMENT PLAN AGREED UPON AT BEDSIDE. SEIZURE PADS IN PLACE. BED IN LOWEST POSITION, PT DEMONSTRATED ABILITY TO USE CALL LIGHT WHICH IS WITHIN REACH.
[2018-08-24] MEDS: levETIRAcetam 500 MG TABLET PO SCH ×2 (08:58→20:50)
[2018-08-24] MEDS: PANTOPRAZOLE SODIUM 40 MG TAB PO SCH (08:58)
[2018-08-24] MEDS: PREDNISONE 20 MG TABLET PO SCH (08:58)
[2018-08-24] MEDS: amLODIPine BESYLATE 10 MG TABLET PO SCH (08:59)
[2018-08-24] MEDS: hydrALAZINE HCL 10 MG TABLET PO SCH ×2 (08:59→20:49)
[2018-08-24] MEDS: METOPROLOL TARTRATE 25 MG TABLET PO SCH ×2 (08:59→20:52)
--- NOTE | 2018-08-24 09:45 | NUR ---
DR. STEVE AT BEDSIDE
--- NOTE | 2018-08-24 11:35 | NUR ---
NAUSEA PT COMPLAINING OF NAUSEA. ZOFRAN ADMINISTERED PER PRN GUIDELINES
--- NOTE | 2018-08-24 12:31 | NUR ---
RN ROUNDS PT STATED SHE NO LONGER FEELS NAUSEATED AND THAT THE ZOFRAN WAS EFFECTIVE.
[2018-08-24] MEDS: MORPHINE 2 MG/ML INJ. SYRINGE IVP PRN ×2 (12:59→21:01)
--- NOTE | 2018-08-24 13:24 | NUR ---
DC Planning: Cm met with pt. today, the pt. is aaox4 today and able to answer questions appropriately. Informed pt. about dcp to snf. the pt. refused going to snf. She stated there is no need to go there since she is feeling better and improving. Dr. Sotelo made aware. Addendum: 08/24/18 at 1600 by Carine Barillas RN Received another dc to snf order from dr. Sotelo that the pt. now agreed with the transfer. CM spoke confirmed with the pt. She stated dr. Sotelo told her that she needed rehab and now the pt. agreed with the transfer. She agreed going to [facility] as per dr. Sotelo 's recommendation.
--- NOTE | 2018-08-24 13:58 | NUR ---
Dietitian Recommendations *Recommend Renal standard 2gm Na 3gm K 1gm Phosphorus diet w/ snacks in between meals. *Encourage pt to increase food intake. Please see Nutritional Assessment for details. TEJINDER, RD
--- NOTE | 2018-08-24 14:29 | NUR ---
1430 ZOSYN DELAYED DUE TO DIALYSIS MED CONTRAINDICATED WITH DIALYSIS. WILL INFUSE AFTER DIALYSIS IS COMPLETED
--- NOTE | 2018-08-24 15:15 | NUR ---
DIALYSIS NURSE AT BEDSIDE
--- NOTE | 2018-08-24 16:00 | NUR ---
DC Planning: confirmed with Janet, coordinator at [facility]. She stated the pt. is accepted , going to room #19B,RN to report # [phone], the bed is available now. Janet confirmed accommodation /transportation to and from HD ctr. Beto HATHAWAY made aware. The pt made aware of possible transfer today post HD. Addendum: 08/24/18 at 1629 by Carine Barillas RN Revised info charting above: DC Planning: confirmed with Janet, coordinator at [facility]. Janet confirmed accommodation /transportation to and from HD ctr. Beto HATHAWAY made aware. The pt made aware of possible transfer today post HD.
--- NOTE | 2018-08-24 16:30 | NUR ---
DC Planning: faxed referral inquiry to Janet at [facility] fax # [phone], tel # [phone]. Janet will call nursing unit to give bed assignment if accepted. RN please call [facility] to set up the transportation. CM is unable to set up now dt no accepting confirmation from [place] yet. DC package delivered to nursing station. Ashlyn made aware. Addendum: 08/24/18 at 1645 by Carine Barillas RN >> Per Janet, the pt. is accepted, but there will be bed available tomorrow. MAG Pérez made aware. CM to f/u in am.
[2018-08-24] MEDS: EPOETIN ALFA 10,000 UNITS/ML VIAL SUBCUT SCH (17:29)
--- NOTE | 2018-08-24 17:35 | NUR ---
DIALYSIS COMPLETE: 2.5L OUT
--- NOTE | 2018-08-24 18:50 | NUR ---
CLOSING NOTE PT RESTING IN BED, NO COMPLAINT OF PAIN, STATED ALL NEEDS HAVE BEEN MET AT THIS TIME. PATIENT UPDATED THAT SHE WILL REMAIN AT [facility] AND TRANSFER TO [facility] TOMORROW.
--- NOTE | 2018-08-24 19:10 | NUR ---
OPENING NOTES RECEIVED PATIENT IN BED AAO X4. DENIES PAIN. BREATHING UNLABORED ON ROOM AIR. PLAN OF CARE REVIEWED WITH PATIENT. CALL LIGHT WITHIN REACH. BED ALARM ON. BED IN LOWEST LOCKED POSITION.
--- NOTE | 2018-08-24 21:01 | NUR ---
MED PASS/ PAIN MGT DUE MEDICATIONS GIVEN. VITAL SIGNS STABLE. MEDICATED WITH MORHINE 2 MG IVP ORDERED FOR C/O RT LOWER LEG PAIN 03/23
[2018-08-25 00:13] VITALS: BP_SYST 155
[2018-08-25] MEDS: PIPERACILLIN/TAZO 2.25G/DEX-IS 50 ML IV SCH (02:13)
--- NOTE | 2018-08-25 02:17 | NUR ---
ATB DUE ANTIBIOTIC INFUSED. IV LINE INTACT. CALL LIGHT WITHIN REACH. BED ALARM ON.
[2018-08-25] MEDS: ONDANSETRON HCL 4 MG/2 ML VIAL IVP PRN ×2 (02:53→07:37)
--- NOTE | 2018-08-25 02:53 | NUR ---
NAUSEA MEDICATED WITH ZOFRAN ORDERED FOR C/O NAUSEA.
--- NOTE | 2018-08-25 06:43 | NUR ---
CLOSING NOTES PATIENT IN BED AWAKE. NO DISTRESS NOTED. NEEDS ATTENDED. CALL LIGHT WITHIN REACH. BED IN LOWEST LOCKED POSITION. BED ALARM ON.
[2018-08-25] MEDS: MORPHINE 2 MG/ML INJ. SYRINGE IVP PRN (07:38)
[2018-08-25 08:11] VITALS: BP_SYST 144
--- NOTE | 2018-08-25 08:14 | NUR ---
OPENING NOTE: RECEIVED REPORT FROM NIGHT NURSE. PATIENT IS RESTING COMFORTABLY IN BED. NO S/S OF DISTRESS OR SOB. PATIENT COMPLAINED OF NAUSEA AND PAIN AND MEDICATED FOR BOTH. VITAL SIGNS WNL. ASSESSMENT COMPLETE. IV IS PATENT AND SALINE LOCKED. PATIENT EDUCATED ON MEDICATION SIDE EFFECTS AND TO ALWAYS CALL FOR ASSISTANCE. PATIENT VERBALIZED UNDERSTANDING. CALL LIGHT IN REACH, BED IN LOWEST POSITION, AND WILL CONTINUE TO MONITOR.
--- NOTE | 2018-08-25 08:20 | NUR ---
DC Planning: Per Janet, the pt. is assigned to room 24A, bed is available now, RN to report # [phone].MAG Lay made aware.
--- NOTE | 2018-08-25 08:52 | NUR ---
Discharge Planning: DCP arranged transportation to [facility] ([phone] p [phone]) room 24B. Medic 2 ([phone]) 12:00pm black pickler, DCP made pt nurse aware.
[2018-08-25] MEDS: PREDNISONE 20 MG TABLET PO SCH (09:43)
[2018-08-25] MEDS: levETIRAcetam 500 MG TABLET PO SCH (09:43)
[2018-08-25] MEDS: PANTOPRAZOLE SODIUM 40 MG TAB PO SCH (09:44)
[2018-08-25] MEDS: hydrALAZINE HCL 10 MG TABLET PO SCH (09:44)
[2018-08-25] MEDS: METOPROLOL TARTRATE 25 MG TABLET PO SCH (09:44)
[2018-08-25] MEDS: amLODIPine BESYLATE 10 MG TABLET PO SCH (09:45)
--- NOTE | 2018-08-25 10:00 | NUR ---
RN ROUNDS PATIENT IS RESTING COMFORTABLY IN BED. NO S/S OF DISTRESS OR SOB. PATIENT IS AWAKE AND ALERT. NO NEEDS AT THIS TIME. PATIENT IS AWARE THAT TRANSPORTATION IS SET UP FOR 12PM. CALL LIGHT IN REACH, BED IN LOWEST POSITION, AND WILL CONTINUE TO MONITOR.
[2018-08-25 11:33] VITALS: BP_SYST 151
[2018-08-25 12:02] VITALS: BP_SYST 151
--- NOTE | 2018-08-25 12:15 | NUR ---
PT TRANSFERRED Report given to GARTH at [facility]. Transfer packet with Transfer Orders and Medication Reconciliation form given to EMT with report. Exitcare provided. [facility] ID band removed, replaced with ID band with pt's name and . All belongings sent with patient. Patient left floor via gurney escorted by EMT in no distress.
== END 2018-08-25 12:15 | DRG 871 ==
LOC: SED 20:15 → STU 08-22 00:21
PROVIDERS: ADMIT Internal Medicine Hospice and Palliative Medicine; ATTEND Internal Medicine Hospice and Palliative Medicine
PROC: 5A1D70Z Performance of Urinary Filtration, Intermittent, Less than 6 Hours Per Day (ICD-10-PCS; principal; 2018-08-22)
PROC: 5A1D70Z Performance of Urinary Filtration, Intermittent, Less than 6 Hours Per Day (ICD-10-PCS; 2018-08-24)
DX: A41.9 Sepsis, unspecified organism (principal); N18.6 End stage renal disease; L03.115 Cellulitis of right lower limb; E24.9 Cushing's syndrome, unspecified; I13.2 Hypertensive heart and chronic kidney disease with heart failure and with stage 5 chronic kidney disease, or end stage renal disease; I50.30 Unspecified diastolic (congestive) heart failure; D63.8 Anemia in other chronic diseases classified elsewhere; M32.9 Systemic lupus erythematosus, unspecified; M19.90 Unspecified osteoarthritis, unspecified site; E87.5 Hyperkalemia; Z96.643 Presence of artificial hip joint, bilateral; I27.20 Pulmonary hypertension, unspecified; Z96.651 Presence of right artificial knee joint; E86.0 Dehydration; R56.9 Unspecified convulsions; T38.0X5A Adverse effect of glucocorticoids and synthetic analogues, initial encounter; S89.91XA Unspecified injury of right lower leg, initial encounter; W20.8XXA Other cause of strike by thrown, projected or falling object, initial encounter; Y93.89 Activity, other specified; Y92.89 Other specified places as the place of occurrence of the external cause; Y99.8 Other external cause status; Z99.2 Dependence on renal dialysis; Z88.6 Allergy status to analgesic agent; Z88.1 Allergy status to other antibiotic agents; Z79.899 Other long term (current) drug therapy; Z79.52 Long term (current) use of systemic steroids
CPT/HCPCS: 36415; 71045; 73700-TC; 80053; 80061; 83605; 83735-TC; 83880; 84443-TC; 85025; 87040-TC; 87081; 90656; 90935; 90937; 93005; 93306; 93971; 96365; 96367; 96375; 96376; 99285; J0360; J0885; J1200; J1815; J1953; J1956; J2060; J2270; J2405; J2543; J2765; J7030; J7040; J7512

== ENCOUNTER 2020-09-04 13:08 | Emergency (ER) | payer OTHER, MEDICAID ==
[~2020-09-04] VITALS: Ht 162.6 cm; Wt 48.1 kg
--- NOTE | 2020-09-04 13:10 | NUR ---
Placed in room 7 . Placed on laboratory monitor, blood pressure machine and pulse oximeter. To gown for exam. Side rails up. Report given to MAG Walsh.
[2020-09-04 13:28] VITALS: BP_SYST 198
--- NOTE | 2020-09-04 13:30 | NUR ---
ER Dr. Bah at bedside examining patient.
[2020-09-04] MEDS ORDERED: cloNIDine HCL 0.1 MG TABLET PO ONE (13:45)
[2020-09-04] MEDS ORDERED: fentaNYL CITRATE/PF 100 MCG/2 ML AMP IM ONE (13:45)
--- NOTE | 2020-09-04 14:20 | NUR ---
CALM, ALERT, RESP UNLABORED, SKIN WARM AND DRY. COMMUNICATES CLEARLY. NO DISTRESS
--- NOTE | 2020-09-04 15:11 | NUR ---
Raymundo uriostegui in ED - 09/04/20 at [address] JARAMILLO IN TO ASSESS/PULMONOLOGY
--- NOTE | 2020-09-04 15:12 | NUR ---
BACK FROM CT HEAD
[2020-09-04] MEDS ORDERED: MORPHINE 2 MG/ML INJ. SYRINGE IVP ONE (15:30)
[2020-09-04] MEDS ORDERED: hydrALAZINE HCL 20 MG/ML VIAL IVP ONE (15:30)
[2020-09-04] MEDS ORDERED: ONDANSETRON HCL 4 MG/2 ML VIAL IVP ONE (15:30)
--- NOTE | 2020-09-04 16:07 | NUR ---
DR DAILEY IN TO REASSESS
[2020-09-04 16:17] VITALS: BP_SYST 147
--- NOTE | 2020-09-04 16:23 | NUR ---
Patient given written and verbal discharge instructions and verbalizes understanding. ER MD discussed with patient the results and treatment provided. Patient in stable condition. ID arm band removed. IV catheter removed intact and dressing applied, no active bleeding. Patient educated on pain management and to follow up with PMD. Pain Scale 4/10 Opportunity for questions provided and answered. Medication side effect fact sheet provided.
== END 2020-09-04 16:23 | disposition home or self-care (01) ==
LOC: SED 13:08
DX: R51.9 Headache, unspecified (principal); I10 Essential (primary) hypertension; N18.6 End stage renal disease; Z99.2 Dependence on renal dialysis; Z79.899 Other long term (current) drug therapy; Z88.1 Allergy status to other antibiotic agents; Z88.6 Allergy status to analgesic agent
CPT/HCPCS: 70450; 96372; 96374; 96375; 99285; J0360; J2270; J2405; J3010

== ENCOUNTER 2020-10-02 13:54 | Inpatient (IN) | payer OTHER, MEDICAID, SELFPAY ==
[~2020-10-02] VITALS: Ht 162.6 cm; Wt 49.7 kg
[2020-10-02 14:00] VITALS: BP_SYST 186
--- NOTE | 2020-10-02 14:00 | NUR ---
Patient to ER bed 8 to gown for evaluation. Side rails up.
--- NOTE | 2020-10-02 14:02 | NUR ---
Patient presented to ER C/O SOB Patient A&Ox4, afebrile, skin pink and wam, pain /, denies N/V/D. Patient states she is short of breath since last night. Patient reports she gets winded while talking
--- NOTE | 2020-10-02 14:10 | NUR ---
ER Dr. MADDEN at bedside examining patient.
[2020-10-02] MEDS ORDERED: cefTRIAXone 1 GM IVPB PREMIX 50 ML IV ONE ×2 (14:15→14:46)
--- NOTE | 2020-10-02 14:30 | NUR ---
# 20 gauge angiocath placed to Right arm. Use of asceptic technique. Opsite placed over site. Blood return noted. Blood for lab drawn from site. Flushed with 10 cc of normal saline. No evidence of infiltration noted. Patient tolerated well.
[2020-10-02] MEDS ORDERED: cefTRIAXone 1 GM VIAL ONE (14:45)
--- NOTE | 2020-10-02 14:54 | NUR ---
Raymundo uriostegui in [facility] - 10/02/20 at 1531 by SDEDTD Report from Nico HATHAWAY
--- NOTE | 2020-10-02 14:55 | NUR ---
Raymundo uriostegui in ED - 10/02/20 at 1532 by SDEDTD PT to ER bed 6, ambulatory from radiology with staff
[2020-10-02 15:02] LABS: BASOPHILS # (AUTO) 0.1 K/uL (0.0-0.2); BASOPHILS % (AUTO) 3.4 % (0.0-2.0); EOSINOPHILS % (AUTO) 0.2 % (0.0-4.0); HEMATOCRIT 29.9 % (36-48); HEMOGLOBIN 9.8 g/dL (12.0-16.0); LYMPHOCYTES % (AUTO) 37.8 % (20.5-51.5); MEAN CORPUSCULAR HEMOGLOBIN 34 pg (27-31); MEAN CORPUSCULAR HGB CONC 33 % (32-36); MEAN CORPUSCULAR VOLUME 102 fL (79.0-98.0); MONOCYTES # (AUTO) 0.2 K/uL (0.0-1.0); MONOCYTES % (AUTO) 8.8 % (1.7-9.3); NEUTROPHILS # (AUTO) 1.3 K/uL (1.8-7.7); NEUTROPHILS % (AUTO) 49.8 % (40.0-70.0); PLATELET COUNT (AUTO) 54 K/uL (130-430); RED BLOOD CELL COUNT(AUTO) 2.93 MIL/uL (4.2-6.2); RED CELL DISTRIBUTION WIDTH 17.2 % (9.0-15.0); WHITE BLOOD COUNT (AUTO) 2.6 K/uL (4.8-10.8)
[2020-10-02 15:10] LABS: CALCIUM 8.9 mg/dL (8.4-11.0); CREATININE 6.16 mg/dL (0.55-1.30); POTASSIUM 4.1 mmol/L (3.5-5.1)
[2020-10-02 15:16] LABS: ALBUMIN 3.2 g/dL (3.4-4.8); TOTAL BILIRUBIN 0.5 mg/dL (0.0-1.0)
--- NOTE | 2020-10-02 15:35 | NUR ---
Patient requesting oxygen NC. Made Dr. Peres aware.
--- NOTE | 2020-10-02 15:37 | NUR ---
Saturation 95% on RA. Patient placed on 2 L NC.
--- NOTE | 2020-10-02 15:59 | NUR ---
RT Berger at bedsidefor BIPAP per order.
--- NOTE | 2020-10-02 16:04 | NUR ---
Medication reconciliation completed with information provided by PT. Any prior medication reconciliation on file was reviewed and corrected.
[2020-10-02] MEDS ORDERED: CAT.1 PO (16:13)
--- NOTE | 2020-10-02 16:40 | NUR ---
NOTIFIED TELE STRUCTURAL STEEL ENGINEER ZENNY Patient admitted to Tele by Dr. Rubio
--- NOTE | 2020-10-02 16:55 | NUR ---
Second request for bed assignement to Andry HATHAWAY
--- NOTE | 2020-10-02 17:09 | NUR ---
Andry RN bed assignment recieved with request to continue to hold patient for "preparing patient room"
--- NOTE | 2020-10-02 17:15 | NUR ---
Patient will be admitted to care of DR. MALDONADO. Admitted to TELE unit. Will go to [id number] . Belongings list completed. Complete and up to date summary report printed. SBAR report to be given at bedside with opportunity for questions.
--- NOTE | 2020-10-02 17:15 | NUR ---
RT NOTES Placed pt on 24% Ventimask for transfer to [facility], no distress noted, saturation 100%. placed surgical mask over Ventimask during transport. @1745 once in the room, took surgical mask off, kept pt on Ventimask. no distress noted. bipap on standby.
--- NOTE | 2020-10-02 17:17 | NUR ---
Transfer to TELE via ACLS protocol. Licensed nurse present. IV present no signs or symptoms of infiltration.
[2020-10-02 17:50] VITALS: BP_SYST 195
--- NOTE | 2020-10-02 17:50 | NUR ---
ADMISSION NOTE Received patient from ER via wheelchair with portable venturi mask. Patient admitted with diagnosis of Pneumonia/poss CHF/Esrd . Patient is awake, alert, oriented X 4. Patient oriented to hospital room, call light, toileting, pain management and safety-teach back done. Patient informed that i will be her nurse and that their room number is 124-B. Personal belongings checked and Belongings List documented. Call light within reach. Addendum: 10/02/20 at 1936 by Anjelica Escamilla RN PLACE PATIENT ON CONTACT AIRBORNE AND DROPLET PRECAUTION FOR PUI.
[2020-10-02 17:56] VITALS: BP_SYST 198
[2020-10-02 18:00] VITALS: BP_SYST 195
[2020-10-02] MEDS ORDERED: hydrALAZINE HCL 20 MG/ML VIAL IVP PRN (18:00)
[2020-10-02] MEDS ORDERED: ACETAMINOPHEN 325 MG TABLET PO PRN (18:00)
--- NOTE | 2020-10-02 18:00 | NUR ---
MD ROUNDS: DR MALDONADO SEEN PATIENT IN THE ROOM. INFORM HER BP ELEVATED.WITH ORDERS OF HYDRALAZINE 10MG IVP NOW THEN ORDERS TO FOLLOW.
[2020-10-02] MEDS ORDERED: hydrALAZINE HCL 20 MG/ML VIAL ONE (18:11)
--- NOTE | 2020-10-02 18:13 | NUR ---
CONSULTATION CALLED REASON FOR CONSULTATION:ESRD WAS CONSULT CALLED?Y PERSON WHO WAS NOTIFIED:GISELA CONSULTING PHYSICIAN:LYN DOMINGUEZ COFFEE ROASTER SPECIALTY:NEPHRO COFFEE ROASTER PHONE NUMBER:[phone] REQUESTING PHYSICIAN:JAYY ALONZO
--- NOTE | 2020-10-02 18:44 | NUR ---
ELEVATED BP: APRESOLINE 10MG IVP GIVEN ORDERED .
--- NOTE | 2020-10-02 18:45 | NUR ---
PO MEDS: NORVASC 10MG PO X1,PREDNISONE 20MG PO X1 AND PROTONIX 40MG PO X1 GIVEN ORDERED. NO PROBLEM.
[2020-10-02] MEDS ORDERED: amLODIPine BESYLATE 10 MG TABLET PO ONE (19:00)
[2020-10-02] MEDS: ALBUTEROL SULFATE 0.083% 2.5 MG/3 ML VIAL.NEB INH SCH ×2 (19:00→21:45)
[2020-10-02] MEDS ORDERED: PANTOPRAZOLE SODIUM 40 MG TAB PO ONE (19:00)
[2020-10-02] MEDS ORDERED: predniSONE 20 MG TABLET PO ONE (19:00)
--- NOTE | 2020-10-02 19:25 | NUR ---
END OF SHIFT: ENDORSED TO NIGHT NURSE [facility] PATIENT WITH ELEVATED BP AND TO F/U WITH NEPHRO IF BP NOT GOING DOWN AFTER GIVING NIGHT MEDS PER DR MALDONADO. SAFETY MEASURES RENDERED. CONTINUE TO MONITOR.
--- NOTE | 2020-10-02 19:30 | NUR ---
ROUNDS PATIENT RESTING COMFORTABLY IN BED, NOT IN DISTRESS, VITALS STABLE. DENIES PAIN AT THIS TIME. ASSESSMENT DONE AND DOCUMENTED. SEE FLOWSHEET. NEEDS ATTENDED TO. SAFETY AND FALL MEASURES IN PLACED. BED IN LOW AND LOCKED POSITION. CALL LIGHT PLACED WITHIN REACH.
[2020-10-02 20:00] VITALS: BP_SYST 156
[2020-10-02] MEDS ORDERED: ALBUTEROL MDI INHALATION 8 GM INH INH SCH (21:00)
--- NOTE | 2020-10-02 21:10 | NUR ---
MEDICATION DUE MEDICATIONS GIVEN ORDERED, TOLERATED WELL. WILL CONTINUE TO MONITOR.
[2020-10-02] MEDS: METOPROLOL TARTRATE 25 MG TABLET PO SCH (21:32)
--- NOTE | 2020-10-02 23:50 | NUR ---
DR. MALDONADO PAGED AND TALKED TO DR. MALDONADO, PATIENT C/O BACK PAIN AND WANTS MORPHINE SINCE TYLENOL WILL NOT WORK ON HER. NEW ORDER GIVEN FOR MORPHINE 2 MG IVP Q4HRS PRN FOR PAIN. WILL CONTINUE TO MONITOR.
--- NOTE | 2020-10-02 23:55 | NUR ---
HIGH ALERT NOTE: Called Dr. Rubio back at [phone] identified within the medical roster to verify physician authenticity.
[2020-10-03] VITALS: BP_SYST 167
[2020-10-03] MEDS ORDERED: MORPHINE 2 MG/ML INJ. SYRINGE IVP PRN
[2020-10-03] MEDS ORDERED: METOCLOPRAMIDE HCL 10 MG/2 ML VIAL IVP PRN
[2020-10-03] MEDS: cloNIDine HCL 0.1 MG TABLET PO PRN ×2 (00:57→21:58)
[2020-10-03] MEDS: MORPHINE 2 MG/ML INJ. SYRINGE IVP PRN ×2 (00:57→10:40)
--- NOTE | 2020-10-03 02:13 | NUR ---
ROUNDS PATIENT ASLEEP, RESPIRATIONS EVEN AND UNLABORED, NO SOB NOTED, WILL CONTINUE TO MONITOR.
--- NOTE | 2020-10-03 04:16 | NUR ---
PATIENT RESTING: Patient resting quietly. No acute distress noted. Vital signs within normal range.
--- NOTE | 2020-10-03 05:45 | NUR ---
REFUSED COVID PCR TEST PATIENT AWAKE, REFUSED COVID 19 PCR TEST, RISKS AND BENEFITS EXPLAINED HOWEVER PATIENT STILL REFUSING THE TEST TO BE TAKEN. WILL ENDORSE TO INCOMING SHIFT NURSE.
--- NOTE | 2020-10-03 06:24 | NUR ---
CLOSING NOTES PATIENT RESTING COMFORTABLY IN BED, NO COMPLAINTS AT THIS TIME, ALL NEEDS ATTENDED TO. SAFETY MEASURES MAINTAINED. BED IN LOW AND LOCKED POSITION. CALL LIGHT PLACED WITHIN REACH.
[2020-10-03 07:10] LABS: BASOPHILS % (AUTO) 1.4 % (0.0-2.0); HEMATOCRIT 31.7 % (36-48); HEMOGLOBIN 10.1 g/dL (12.0-16.0); LYMPHOCYTES # (AUTO) 0.7 K/uL (1.0-5.5); LYMPHOCYTES % (AUTO) 42.5 % (20.5-51.5); MEAN CORPUSCULAR HEMOGLOBIN 33 pg (27-31); MEAN CORPUSCULAR HGB CONC 32 % (32-36); MEAN CORPUSCULAR VOLUME 102 fL (79.0-98.0); MONOCYTES # (AUTO) 0.3 K/uL (0.0-1.0); MONOCYTES % (AUTO) 16.3 % (1.7-9.3); NEUTROPHILS % (AUTO) 39.8 % (40.0-70.0); RED CELL DISTRIBUTION WIDTH 17.6 % (9.0-15.0)
[2020-10-03 08:00] VITALS: BP_SYST 162
--- NOTE | 2020-10-03 08:00 | NUR ---
Notes- Awake, patient stated she feels so much better, on supplemental oxygen at 2L, O2 sat at room air is 93%. Agreed to have PCR covid test. Afebrile. No distress noted. Enc to call for help as needed. will monitor.
[2020-10-03] MEDS: ALBUTEROL SULFATE 0.083% 2.5 MG/3 ML VIAL.NEB INH SCH ×4 (08:16→19:00)
[2020-10-03 08:29] LABS: ALBUMIN 2.8 g/dL (3.4-4.8); C-REACTIVE PROTEIN QUANT 2.3 mg/dL (0-0.5); CREATININE 7.23 mg/dL (0.55-1.30); THYROID STIMULATING HORMONE 15.37 uIu/mL (0.34-4.82); TOTAL BILIRUBIN 0.4 mg/dL (0.0-1.0)
[2020-10-03 09:01] LABS: WHITE BLOOD COUNT (AUTO) 1.7 K/uL (4.8-10.8)
[2020-10-03 09:02] LABS: NEUTROPHILS # (AUTO) 0.7 K/uL (1.8-7.7)
[2020-10-03 09:04] LABS: POTASSIUM 6.1 mmol/L (3.5-5.1)
--- NOTE | 2020-10-03 09:20 | NUR ---
CONSULTATION PAGED/CALLED Reason for Consultation: [] PANCYTOPENIA, S/P CHEMO RX Person Who was Notified: [] ARETHA Consulting Physician: [] DR EVANS Thoracic Surgeon Specialty: [] ONCO/OTTONIEL Ordering Physician: [] DR MALDONADO Addendum: 10/03/20 at 0927 by Joselin Cortes IN/ CORRECTION: CHANGED BY DR MALDONADO --REASON FOR CONSULT PANCYTOPENIA, SLE, ON STEROIDS. NOT SP CHEMORX.
[2020-10-03] MEDS: METOPROLOL TARTRATE 25 MG TABLET PO SCH ×2 (09:21→21:57)
[2020-10-03] MEDS: PANTOPRAZOLE SODIUM 40 MG TAB PO SCH (09:21)
[2020-10-03] MEDS: amLODIPine BESYLATE 10 MG TABLET PO SCH (09:21)
[2020-10-03] MEDS: predniSONE 20 MG TABLET PO SCH (09:21)
[2020-10-03] MEDS: SODIUM POLYSTYRENE SULFONATE 15 GM/60 ML UDBTL PO ONE ×2 (09:30→10:34)
--- NOTE | 2020-10-03 09:32 | NUR ---
Nutrition Update Guillaume Scale 18 noted. Pt admitted for pneumonia/possible CHF. Diet: regular, renal BMI: 17.7 kg/m2 RD to follow per nutrition care standards.
[2020-10-03] MEDS ORDERED: LEVOTHYROXINE SODIUM 0.05 MG TABLET PO ONE (10:00)
--- NOTE | 2020-10-03 10:00 | NUR ---
MEDS- patient is refusing to take kayaxalate. educate patient the importance of the medication but still refusing. Advise patient to take it slowly.
[2020-10-03 12:00] VITALS: BP_SYST 140
--- NOTE | 2020-10-03 12:00 | NUR ---
Notes- Provided lunch, patient still refusing to takke her kayaxalate
[2020-10-03 13:49] LABS: PLATELET COUNT (AUTO) 52 K/uL (130-430)
[2020-10-03] MEDS ORDERED: cefTRIAXone 1 GM in D5W 50 ML IV SCH (15:00)
--- NOTE | 2020-10-03 15:09 | NUR ---
Dietitian Recommendations * Recommend renal diet w/ Nepro BID (ONS provides 850 kcal/day, 38 gm protein/day) IVONNE, RD Please refer to Nutrition Assessment for details. Addendum: 10/03/20 at [address] Amended: Links added.
[2020-10-03 16:04] VITALS: BP_SYST 152
--- NOTE | 2020-10-03 18:09 | NUR ---
Notes- Patient is on dialysis at this time. No distress noted. On room air tolerated well.
[2020-10-03 19:00] VITALS: BP_SYST 166
[2020-10-03 20:00] VITALS: BP_SYST 166
[2020-10-03] MEDS ORDERED: HEPARIN IV FLUSH 300 UNITS/3ML SYR INJ ONE ×2 (21:00)
--- NOTE | 2020-10-03 21:00 | NUR ---
HIGH ALERT NOTE: Called Dr. wing back [phone] identified within the medical roster to verify physician authenticity. h/d nsg;diaz required heparin post h/d access flush x2 ports. ordered heparin:5000 units ivp x1 x 2 ports h/d access.
--- NOTE | 2020-10-04 06:30 | NUR ---
pt.assessed.pt.presented general status stable.respiratory status stable.pt.presented no c/o pain,nausea w/in the shift.pt.capable to reposition self. pt.had submitted to hemo-dialysis w/in the shift.2litres removed.i have administered synthroid 0600a dose.i have changed the gown/ linen.call light/telephone placed w/in access of the pt.i have weighed the pt.2/t h/d status.
[2020-10-04 06:37] LABS: BASOPHILS % (AUTO) 0.9 % (0.0-2.0); HEMATOCRIT 29.6 % (36-48); HEMOGLOBIN 9.4 g/dL (12.0-16.0); LYMPHOCYTES # (AUTO) 0.6 K/uL (1.0-5.5); LYMPHOCYTES % (AUTO) 21.6 % (20.5-51.5); MEAN CORPUSCULAR HEMOGLOBIN 33 pg (27-31); MEAN CORPUSCULAR HGB CONC 32 % (32-36); MEAN CORPUSCULAR VOLUME 103 fL (79.0-98.0); MONOCYTES # (AUTO) 0.6 K/uL (0.0-1.0); MONOCYTES % (AUTO) 18.8 % (1.7-9.3); NEUTROPHILS # (AUTO) 1.7 K/uL (1.8-7.7); NEUTROPHILS % (AUTO) 58.7 % (40.0-70.0); PLATELET COUNT (AUTO) 66 K/uL (130-430); RED BLOOD CELL COUNT(AUTO) 2.87 MIL/uL (4.2-6.2); RED CELL DISTRIBUTION WIDTH 17.8 % (9.0-15.0); RETICULOCYTE COUNT 3.3 % (0.5-1.5); WHITE BLOOD COUNT (AUTO) 2.9 K/uL (4.8-10.8)
[2020-10-04] MEDS ORDERED: LEVOTHYROXINE SODIUM 0.05 MG TABLET PO SCH (07:00)
[2020-10-04 07:06] LABS: ALBUMIN 2.9 g/dL (3.4-4.8); CALCIUM 7.8 mg/dL (8.4-11.0); CREATININE 4.41 mg/dL (0.55-1.30); POTASSIUM 3.5 mmol/L (3.5-5.1); TOTAL BILIRUBIN 0.4 mg/dL (0.0-1.0)
--- NOTE | 2020-10-04 07:25 | NUR ---
opening note received sbar from night RN, patient in bed respirations even, non labored, bed in low and locked position, call light within reach, bed alarm on
[2020-10-04] MEDS: ALBUTEROL SULFATE 0.083% 2.5 MG/3 ML VIAL.NEB INH SCH ×3 (07:27→15:00)
[2020-10-04 08:00] VITALS: BP_SYST 188
--- NOTE | 2020-10-04 08:00 | NUR ---
nurse note obtained vs, patient in bed, respirations even, non labored, bed in low and locked position, call light within reach, patient denies any pain or discomfort.
[2020-10-04] MEDS: METOPROLOL TARTRATE 25 MG TABLET PO SCH (09:00)
[2020-10-04] MEDS: PANTOPRAZOLE SODIUM 40 MG TAB PO SCH (09:00)
[2020-10-04] MEDS: amLODIPine BESYLATE 10 MG TABLET PO SCH (09:00)
[2020-10-04] MEDS: predniSONE 20 MG TABLET PO SCH (09:00)
--- NOTE | 2020-10-04 10:00 | NUR ---
nurse note patient walking in room, denies any pain or discomfort, npo for ultra sound,
[2020-10-04 10:50] LABS: ERYTHROCYTE SEDIMENTATION RATE 18 MM/HR (0-20)
[2020-10-04 12:00] VITALS: BP_SYST 196
--- NOTE | 2020-10-04 12:00 | NUR ---
nurse note patient in bed, respirations even, non labored, bed in low and locked position, call light within reach, obtained vs, elevated bp, apresoline given
--- NOTE | 2020-10-04 12:30 | NUR ---
md rounds dr Rubio bedside examining patient
[2020-10-04] MEDS ORDERED: cloNIDine HCL 0.1 MG/24 HR PATCH.TDWK TD ONE (13:30)
--- NOTE | 2020-10-04 14:30 | NUR ---
nurse note patient in bed respirations even, non labored, bed in low and locked position, call light within reach, patient denies any pain or discomfort
[2020-10-04 16:05] VITALS: BP_SYST 160
--- NOTE | 2020-10-04 16:45 | NUR ---
nurse note patient upset, will only speak to me in lithuanian, left room to get pre owned sales manager phone
--- NOTE | 2020-10-04 17:00 | NUR ---
safety admin assistant phone Outside Sales Representative Ayah, # [phone], patient informed me that she thinks the is making up tests, and wants to leave AMA, explained to patient indications for any tests ordered, patient refused to listen, informed repair armature winder helper that I would get AMA form
--- NOTE | 2020-10-04 17:10 | NUR ---
informed informed that patient wishes to leave AMA, states that he is already in the parking lot waiting for patient
--- NOTE | 2020-10-04 17:26 | NUR ---
AMA: Patient does not wish to proceed with medical care recommended by Dr. Rubio. Patient given information related to possible complications, up to and including , which could occur as a result of leaving hospital at this time. Patient verbalizes understanding of risks involved leaving against medical advice. Patient has signed AMA form. Removed ID band and IV. catheter intact no bleeding, patient walked out of room with steady gait to parking lot, to awaiting car. Paged Dr. Rubio to inform,
[2020-10-05 10:18] LABS: FOLATE (FOLIC ACID) 5.8 ng/mL (>3.0)
[2020-10-07 12:17] LABS: HAPTOGLOBIN <10 mg/dL (33-278)
== END 2020-10-04 17:27 | disposition left against medical advice (07) | DRG 808 ==
LOC: SED 13:54 → STU 16:14
PROVIDERS: ADMIT Internal Medicine; ATTEND Internal Medicine
DX: D61.818 Other pancytopenia (principal); J18.1 Lobar pneumonia, unspecified organism; N18.6 End stage renal disease; E87.1 Hypo-osmolality and hyponatremia; M87.9 Osteonecrosis, unspecified; I13.2 Hypertensive heart and chronic kidney disease with heart failure and with stage 5 chronic kidney disease, or end stage renal disease; M32.9 Systemic lupus erythematosus, unspecified; Z20.828 Contact with and (suspected) exposure to other viral communicable diseases; Z53.29 Procedure and treatment not carried out because of patient's decision for other reasons; Z96.643 Presence of artificial hip joint, bilateral; I07.1 Rheumatic tricuspid insufficiency; Z96.651 Presence of right artificial knee joint; I50.9 Heart failure, unspecified; I27.20 Pulmonary hypertension, unspecified; M12.9 Arthropathy, unspecified; R09.02 Hypoxemia; Z76.82 Awaiting organ transplant status; Z86.718 Personal history of other venous thrombosis and embolism; Z99.2 Dependence on renal dialysis; Z88.1 Allergy status to other antibiotic agents; Z88.5 Allergy status to narcotic agent; Z79.899 Other long term (current) drug therapy
CPT/HCPCS: 36415; 36600; 71045; 76700-TC; 80053; 82607; 82728; 82746; 82803-TC; 83010; 83605; 83615-TC; 83880; 84439; 84443-TC; 84484; 85025; 85044-TC; 85379; 85651-TC; 86140; 87040-TC; 87081; 90935; 93005; 94640; 94660; 94760; 96365; 99291; G0378; J0360; J0696; J2270; J2765; J7060; J7512; J7613; U0003

== ENCOUNTER 2020-11-16 03:32 | Inpatient (IN) | payer OTHER, MEDICAID, SELFPAY ==
[~2020-11-16] VITALS: Ht 162.6 cm; Wt 47.6 kg
[~2020-11-16 03:32] MED LIST changes: +CAT.1 PO; -LEVE500T9 PO; -METO25TA6 PO; -NOR10 PO; -PRO40 PO
[2020-11-16] MEDS ORDERED: ONDANSETRON HCL 4 MG/2 ML VIAL IVP ONE (03:45)
[2020-11-16 03:47] VITALS: BP_SYST 194
[2020-11-16] MEDS ORDERED: hydrALAZINE HCL 20 MG/ML VIAL IVP ONE (04:00)
[2020-11-16] MEDS ORDERED: ENALAPRILAT DIHYDRATE 1.25 MG/ML VIAL IVP ONE (04:00)
[2020-11-16 04:07] LABS: HEMATOCRIT 35.7 % (36-48); HEMOGLOBIN 11.4 g/dL (12.0-16.0); MEAN CORPUSCULAR HEMOGLOBIN 33 pg (27-31); MEAN CORPUSCULAR HGB CONC 32 % (32-36); MEAN CORPUSCULAR VOLUME 102 fL (79.0-98.0); PLATELET COUNT (AUTO) 64 K/uL (130-430); RED BLOOD CELL COUNT(AUTO) 3.49 MIL/uL (4.2-6.2); RED CELL DISTRIBUTION WIDTH 17.8 % (9.0-15.0); WHITE BLOOD COUNT (AUTO) 2.9 K/uL (4.8-10.8)
[2020-11-16 04:20] LABS: CALCIUM 8.5 mg/dL (8.4-11.0); CREATININE 6.55 mg/dL (0.55-1.30); POTASSIUM 4.5 mmol/L (3.5-5.1)
[2020-11-16 04:25] LABS: ATYPICAL LYMPHOCYTES % 0 % (0-0); BAND % (MANUAL) 0 % (0-6); BASOPHILS % (MANUAL) 0 % (0-2); EOSINOPHILS % (MANUAL) 0 % (0-7); LYMPHOCYTES % (MANUAL) 5 % (20-46); MONOCYTES % (MANUAL) 11 % (0-11)
[2020-11-16] MEDS ORDERED: hydrALAZINE HCL 20 MG/ML VIAL ONE (04:28)
[2020-11-16 04:30] LABS: ALBUMIN 3.5 g/dL (3.4-4.8); TOTAL BILIRUBIN 0.4 mg/dL (0.0-1.0)
[2020-11-16] MEDS ORDERED: cefTRIAXone 1 GM IVPB PREMIX 50 ML IV ONE (05:45)
[2020-11-16] MEDS ORDERED: NORMAL SALINE 5 ML DISP.SYRIN IVF SCH ×2 (06:00)
[2020-11-16] MEDS ORDERED: cefTRIAXone 1 GM in D5W 50 ML IV ONE (06:00)
[2020-11-16] MEDS ORDERED: LEVOFLOXACIN 250 MG/D5W 50 ML IV ONE (06:00)
[2020-11-16] MEDS ORDERED: MORPHINE 4 MG/ML INJ. SYRINGE IVP ONE (06:15)
[2020-11-16] MEDS ORDERED: MORPHINE 4 MG/ML INJ. SYRINGE ONE (06:17)
[2020-11-16 11:08] VITALS: BP_SYST 107
== END 2020-11-16 11:10 | disposition left against medical advice (07) | DRG 193 ==
LOC: SED 03:32 → STU 05:53
PROVIDERS: ADMIT Internal Medicine; ATTEND Internal Medicine
DX: J18.9 Pneumonia, unspecified organism (principal); N18.6 End stage renal disease; I12.0 Hypertensive chronic kidney disease with stage 5 chronic kidney disease or end stage renal disease; Z20.822 Contact with and (suspected) exposure to COVID-19; Z53.29 Procedure and treatment not carried out because of patient's decision for other reasons; Z96.643 Presence of artificial hip joint, bilateral; Z96.651 Presence of right artificial knee joint; Z88.5 Allergy status to narcotic agent; Z88.1 Allergy status to other antibiotic agents; Z79.899 Other long term (current) drug therapy
CPT/HCPCS: 36415; 36600; 71045; 80053; 82550-TC; 82803-TC; 83605; 83880; 84484; 85007; 85027; 85379; 87040-TC; 87081; 93005; 96365; 96368; 96375; 99291; G0378; J0360; J0696; J1956; J2270; J7060